=== PATIENT | male | born 1960 | race Caucasian/White ===

== ENCOUNTER 2022-06-08 15:36 | Outpatient (CLI) | payer OTHER, SELFPAY ==
[2022-06-08 22:05] LABS: Albumin* 4.6 g/dL (3.3-5.0)
[2022-06-08 22:06] LABS: Chloride* 105 mmol/L (96-114); Potassium* 4.1 mmol/L (3.6-5.1); Sodium* 142 mmol/L (135-149)
[2022-06-08 22:08] LABS: Alkaline Phosphatase* 69 U/L (40-150); Aspartate Amino Transferase* 30 U/L (12-35); Bilirubin Total* 0.5 mg/dL (0.1-1.5); Blood Urea Nitrogen* 11 mg/dL (7-30); Carbon Dioxide* 30 mmol/L (20-32); Cholesterol* 121 mg/dL (90-199); Estimated Glomerular Filt Rate 85 ml/min; Total Protein* 7.4 g/dL (6.0-8.3)
[2022-06-08 22:09] LABS: Alanine Aminotransferase* 26 U/L (4-50); Calcium* 9.4 mg/dL (8.4-10.6); Glucose* 94 mg/dL (60-115); HDL Cholesterol* 57 mg/dL (>=40); LDL Cholesterol Calculated 46 mg/dL (<100); Triglycerides* 90 mg/dL (40-149)
[2022-06-08 22:38] LABS: PSA Screen* 0.62 ng/mL (0.10-4.00)
[2022-06-08 22:53] LABS: Hepatitis C Virus Antibody* Negative (Negative)
== END 2022-06-08 15:37 | disposition home or self-care (01) ==
PROVIDERS: PCP Physician Assistant Medical; Visit Provider Family Medicine
DX: Z00.00 Encounter for general adult medical examination without abnormal findings (principal); E03.9 Hypothyroidism, unspecified; Z12.5 Encounter for screening for malignant neoplasm of prostate; Z13.6 Encounter for screening for cardiovascular disorders
CPT/HCPCS: 80053; 80061; 84153; 84443; 86803

== ENCOUNTER 2022-06-15 14:54 | Outpatient (CLI) | payer OTHER, SELFPAY ==
--- NOTE | 2022-06-15 15:00 | CRLHL7_ITS ---
For Patients: As a result of the Century Cures Act, medical imaging exams and procedure reports are released immediately into your electronic medical record. You may view this report before your referring provider. If you have questions, please contact your health care provider. Indication: palp lump x2 left lateral neck Technique: Grayscale and color Doppler ultrasound of the left neck performed. Comparison: None Findings: Multiple enlarged hypoechoic lymph nodes are present within the left side of the neck corresponding to the area palpable concern. The 2 largest lymph nodes measure 2.8 x 1.8 x 2.5 cm and 2.6 x 1.3 x 1.6 cm. No abnormal vascularity. Normal right-sided lymph nodes. Impression: Left cervical adenopathy. Dictated by Dante Mendez MD @ 06/15/2022 4:06:44 PM (Electronically Signed)
== END 2022-06-15 14:55 | disposition home or self-care (01) ==
LOC: US 14:54
PROVIDERS: PCP Physician Assistant Medical; Visit Provider Family Medicine
DX: R59.0 Localized enlarged lymph nodes (principal); R22.1 Localized swelling, mass and lump, neck
CPT/HCPCS: 76536

== ENCOUNTER 2022-06-29 14:52 | Outpatient (CLI) | payer OTHER, SELFPAY ==
--- NOTE | 2022-06-29 15:00 | CRLHL7_ITS ---
For Patients: As a result of the Century Cures Act, medical imaging exams and procedure reports are released immediately into your electronic medical record. You may view this report before your referring provider. If you have questions, please contact your health care provider. INDICATION: CERVICAL LYMPHADENOPATHY TECHNIQUE: CT of the neck with 99 ml Isovue 370 iodinated contrast agent. Coronal and sagittal reconstructions are included. COMPARISON: None FINDINGS: There is asymmetry of the palatine tonsils with masslike enhancement on the left side extending into the left parapharyngeal space measuring approximately 3.3 cm TR x 3.8 cm AP (series 3, image 40). There are multiple abnormal left level 2 lymph nodes that demonstrate heterogeneous or peripheral enhancement, for example a 2 x 1.9 x 1.8 cm left level IIa node and a 1.5 x 1.5 x 1.2 cm left level IIb node, 2.5 x 1.8 x 1.7 cm left level 3 node The nasopharyngeal, oropharyngeal and hypopharyngeal mucosal spaces are normal.. Lucency adjacent to the 2nd right maxillary molar tooth. The supraglottic, glottic and infraglottic larynx are normal. The airway including the trachea is normal and is patent. The parotid glands, submandibular and sublingual glands are normal in appearance. The thyroid gland is normal in appearance. The vascular structures opacify normally with contrast material. Scattered mild cervical spondylosis without significant spinal canal stenosis. No suspicious lytic or blastic osseous lesions. Visualized paranasal sinuses and mastoid air cells are clear. Rightward deviation of the nasal septum with septal spur. Visualized orbital and intracranial contents are normal. Supraclavicular regions, mediastinum and soft tissues of the imaged chest wall are normal. Visualized portions of the upper lungs are clear. IMPRESSION: 1. 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 2. Multiple enlarged and abnormally enhancing left level 2 and 3 lymph nodes most consistent with metastatic lymphadenopathy with necrotic changes. Please note that all CT scans at this facility use dose modulation, iterative reconstruction, and/or weight-based dosing when appropriate to reduce radiation dose to as low as reasonably achievable. Dictated by Dante Conner MD @ 07/01/2022 8:45:21 AM (Electronically Signed)
== END 2022-06-29 14:53 | disposition home or self-care (01) ==
LOC: CT 14:53
PROVIDERS: PCP Family Medicine; Visit Provider Family Medicine
DX: R59.0 Localized enlarged lymph nodes (principal); J03.90 Acute tonsillitis, unspecified; F17.200 Nicotine dependence, unspecified, uncomplicated; R22.1 Localized swelling, mass and lump, neck
CPT/HCPCS: 70491; Q9967

== ENCOUNTER 2022-12-06 08:14 | Outpatient (CLI) | payer OTHER, SELFPAY ==
[2022-12-06 22:25] LABS: TSH With Reflex to FT4* 0.049 uIU/mL (0.270-4.200)
[2022-12-06 23:02] LABS: Free T4 Free Thyroxine* 2.16 ng/dL (0.70-1.85)
== END 2022-12-06 08:15 | disposition home or self-care (01) ==
PROVIDERS: PCP Family Medicine; Visit Provider Family Medicine
DX: E03.9 Hypothyroidism, unspecified (principal); R53.83 Other fatigue; R63.4 Abnormal weight loss; E78.5 Hyperlipidemia, unspecified; N40.0 Benign prostatic hyperplasia without lower urinary tract symptoms
CPT/HCPCS: 80053; 84439; 84443; 86140

== ENCOUNTER 2023-06-22 01:06 | Emergency (ER) | payer OTHER, SELFPAY ==
[2023-06-22 01:24] VITALS: BP 124/104; PULSE 95; RESP 22; TEMP 37.1; O2SAT 100
--- NOTE | 2023-06-22 01:29 | CRLHL7_ITS ---
For Patients: As a result of the Century Cures Act, medical imaging exams and procedure reports are released immediately into your electronic medical record. You may view this report before your referring provider. If you have questions, please contact your health care provider. INDICATION: Lower abdomen pain TECHNIQUE: CT Abdomen and pelvis with i.v. contrast. Coronal and sagittal reformats were obtained. CONTRAST: 74 mL Isovue 370 COMPARISON: None FINDINGS: Lower chest: There is a thin-walled air cyst present in the subpleural posterior left lower lobe measuring 2.6 cm. Liver: Unremarkable. Spleen: Unremarkable. Pancreas: Unremarkable. Gallbladder: Unremarkable. Kidney: Bilateral renal cysts are present measuring up to 3 cm. Adrenal: Unremarkable. Bowel: Unremarkable. The appendix is best seen on coronal images 79-84. The appendix is normal in appearance and size. Vascular: Unremarkable. Lymph: Unremarkable. Peritoneum: Unremarkable. No pneumoperitoneum is seen. No significant ascites is noted. Pelvis: Severe enlargement of the prostate gland is noted. Mild diffuse bladder wall thickening is noted. There is a 1.8 cm right posterior bladder diverticulum noted. Soft tissue: Unremarkable. Bone: Unremarkable for age. IMPRESSIONS: 1. Severe enlargement of the prostate gland is noted. Correlation with physical examination, PSA level, and/or MRI are recommended. 2. Mild diffuse bladder wall thickening is noted. This may be due to urinary tract infection or cystitis. Dictated by Tom Juarez MD @ 06/22/2023 2:38:20 AM Please note that all CT scans at this facility use dose modulation, iterative reconstruction, and/or weight-based dosing when appropriate to reduce radiation dose to as low as reasonably achievable. Dictated by: Tom Juarez MD @ 06/22/2023 02:38:25 (Electronically Signed)
--- NOTE | 2023-06-22 01:31 | ED_ITS ---
HPI - Abdominal Pain General Chief Complaint: Abdominal Pain Stated Complaint: abdominal pain Time Seen by Provider: 06/22/23 01:26 History of Present Illness HPI narrative: Patient is a 63-year-old gentleman who has had abdominal pain off and on all week who presents with worsening periumbilical pain which radiates through to his back. Had some nausea and vomiting of nonbloody material. He has had normal bowel movements this week. 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 He is having no difficulties passing his urine and no dysuria. He has had no prior similar symptoms previously. Pain is severe. Related Data Home Medications Medication Instructions Recorded Confirmed aspirin 81 mg tablet,delayed 81 mg PO DAILY 04/02/22 12/06/22 release naproxen sodium 220 mg tablet 440 mg PO BID PRN 08/20/22 12/06/22 oxycodone 5 mg capsule 5 mg PO Q6H PRN 09/24/22 12/06/22 Previous Rx's Medication Instructions Recorded atorvastatin 40 mg tablet See Rx Instructions .Route 08/03/22 .COMPLEX #30 tabs omeprazole 20 mg capsule,delayed 20 mg PO DAILY #30 caps 08/07/22 release levothyroxine 175 mcg tablet 175 mcg .Route QDAY #90 tabs 08/16/22 lorazepam 0.5 mg tablet 0.5 mg PO TID PRN nausea and 08/20/22 vomiting #30 tabs ondansetron 8 mg disintegrating 8 mg PO Q8H PRN nausea and 08/20/22 tablet vomiting #20 tabs tamsulosin 0.4 mg capsule See Rx Instructions .Route 10/10/22 .COMPLEX #180 caps tadalafil 10 mg tablet 10 mg PO .as Direc as needed PRN 11/30/22 sexual activity #5 tabs mirtazapine 7.5 mg tablet 7.5 mg PO QPM #90 tabs 02/07/23 Allergies Allergy/AdvReac Type Severity Reaction Status Date / Time No Known Allergies Allergy Verified 12/06/22 14:14 Review of Systems Status of ROS Reports: 10 or more systems reviewed and unremarkable except as noted in History and below [facility] Medical History EDWIN (acute kidney injury) ?N17.9 - Acute kidney failure, unspecified (ICD-10) Chronic idiopathic thrombocytopenia ?D69.3 - Immune thrombocytopenic purpura (ICD-10) Erectile dysfunction ?N52.9 - Male erectile dysfunction, unspecified (ICD-10) BPH (benign prostatic hyperplasia) ?N40.0 - Benign prostatic hyperplasia without lower urinary tract symptoms (ICD-10) Hypothyroidism (12/21/11) ?E03.9 - Hypothyroidism, unspecified (ICD-10) Hyperlipidemia (06/15/14) ?E78.5 - Hyperlipidemia, unspecified (ICD-10) Gastroesophageal reflux disease ?K21.9 - Gastro-esophageal reflux disease without esophagitis (ICD-10) Benign paroxysmal positional vertigo (11/20/11) ?H81.10 - Benign paroxysmal vertigo, unspecified ear (ICD-10) Surgical History History of hernia repair ?Z98.890 - Other specified postprocedural states (ICD-10) ?Z87.19 - Personal history of other diseases of the digestive system (ICD-10) Family History Mother Breast cancer, Onset Age: 65 Social History Narrative: History of alcohol abuse, has not had a drink in 25 years marijuana use Smoker, 1ppd for 18 years Smoking Status: Current every day smoker Little interest or pleasure in doing things: not at all Feeling down, depressed, or hopeless: not at all Exam Narrative: Exam Narrative: EXAM GENERAL: Patient appears uncomfortable. EYES: No scleral icterus. LYMPH: No supraclavicular or cervical lymphadenopathy. SKIN: Visible skin seen during exam normal or with benign process only. EXT: No dependent lower extremity pedal edema. HEART: Regular rate and rhythm with no murmurs, rubs, or gallops. LUNGS: Clear to auscultation bilaterally with no crackles or wheezes. ABD: Scaphoid and tender throughout with hypoactive bowel sounds. No rebound or masses palpated PSYCH: Good eye contact, speech is not pressured. Neurologic cranial nerves 2-12 grossly intact no focal defects. Const: Vital Signs, click to edit/add: Vital Signs - 24 hr 06/22/23 01:24 Temperature 98.8 F Pulse Rate [Left] 95 Respiratory Rate 22 Blood Pressure [Le ft Upper Arm] 124/104 H Pulse Oximetry 100 Oxygen Delivery Me thod Room Air Course Course ED Course: Patient seen examined. IV placed normal saline 1 L Toradol 30 mg 4 mg of Zofran given IV. CBC comprehensive metabolic panel amylase urinalysis CT abdomen and pelvis ordered. Vital Signs Vital signs: Initial Vital Signs Temperature 98.8 F 06/22/23 01:24 Temperature Source Temporal Artery Scan 06/22/23 01:24 Pulse Rate 95 06/22/23 01:24 Pulse Rhythm Regular 06/22/23 01:24 Respiratory Rate 22 06/22/23 01:24 Blood Pressure 124/104 H 06/22/23 01:24 Blood Pressure Mean 110 H 06/22/23 01:24 Blood Pressure Position Supine 06/22/23 01:24 Pulse Oximetry 100 06/22/23 01:24 Oxygen Delivery Method Room Air 06/22/23 01:24 Vital Signs Temperature 98.8 F 06/22/23 01:24 Pulse Rate 95 06/22/23 01:24 Respiratory Rate 22 06/22/23 01:24 Blood Pressure 124/104 H 06/22/23 01:24 Pulse Oximetry 100 06/22/23 01:24 Oxygen Delivery Method Room Air 06/22/23 01:24 Temperature 98.8 F 06/22/23 01:24 Pulse Rate 95 06/22/23 01:24 Respiratory Rate 22 06/22/23 01:24 Blood Pressure 124/104 H 06/22/23 01:24 Pulse Oximetry 100 06/22/23 01:24 Oxygen Delivery Method Room Air 06/22/23 01:24 MDM - Abdominal Pain MDM Narrative Medical decision making narrative: Patient presents with severe abdominal pain. Patient's pain resolved with 1 L of normal saline 30 mg of IV Toradol and 4 mg of Zofran. Workup including UA CBC CMP amylase is CT abdomen pelvis are unremarkable with exception of an large bladder which resolved with the patient urinated. And there is a question of cystitis however the UA was normal. Patient is now feeling 100% better is ready for discharge and is willing to follow-up as an outpatient. Differential Diagnosis Differential diagnosis: Likely abdominal pain, acute appendicitis, calculus of kidney, constipation, diverticulitis, gastroenteritis, pancreatitis and small bowel obstruction Lab Data Labs: Lab Results 06/22/23 06/22/23 Range/Units 01:43 02:44 WBC 5.41 (4.50-11.00) K/uL RBC 3.96 L (4.30-5.90) m/uL Hgb 13.0 L (13.5-17.5) gm/dL Hct 39.6 (37.0-53.0) % MCV 100 (80-100) fL MCH 33 (26-34) pg MCHC 33 (32-36) gm/dL RDW Coeff of Evelia 13.0 (11.5-15.5) % Plt Count 122 L (140-440) K/uL Neut % (Auto) 72.8 H (42.0-72.0) % Lymph % (Auto) 14.4 L (20-44) % Barnes % (Auto) 8.7 (0.0-11.0) % Eos % (Auto) 3.3 (0.0-7.0) % Baso % (Auto) 0.6 (0.0-3.0) % Neut # (Auto) 3.90 (1.7-7.0) K/uL Lymph # (Auto) 0.80 L (0.90-2.90) K/uL Barnes # (Auto) 0.50 (0.00-0.90) K/UL Eos # (Auto) 0.18 (0.00-0.50) K/uL Baso # (Auto) 0.03 (0.00-0.30) K/uL Abs Immat Gran (auto) 0.01 (0.00-0.30) K/uL Imm/Tot Granulo (auto) 0.2 % Sodium 142 (135-149) mmol/L Potassium 4.0 (3.6-5.1) mmol/L Chloride 104 (96-114) mmol/L Carbon Dioxide 29 (20-32) mmol/L Anion Gap 9 (7-15) mEq/L BUN 14 (7-30) mg/dL Creatinine 1.1 (0.5-1.5) mg/dL Estimated GFR 75 ml/min Glucose 98 (60-115) mg/dL Calcium 9.0 (8.4-10.6) mg/dL Total Bilirubin 0.4 (0.1-1.5) mg/dL AST 56 H (12-35) U/L ALT 27 (4-50) U/L Alkaline Phosphatase 56 (40-150) U/L Total Protein 7.3 (6.0-8.3) g/dL Albumin 4.2 (3.3-5.0) g/dL Amylase 53 (18-89) U/L Urine Color Yellow (Yellow) Urine Appearance Clear (Clear) Urine pH 5.5 (5.0-8.5) Ur Specific Mora 1.015 (1.000-1.030) Urine Protein Negative (Negative) Urine Glucose (UA) Negative (Negative) Urine Ketones Negative (Negative) Urine Blood Negative (Negative) Urine Nitrite Negative (Negative) Urine Bilirubin Negative (Negative) Urine Urobilinogen 0.2 (0.2-1.0) Ur Leukocyte Esterase Negative (Negative) Discharge Plan Discharge Clinical Impression: Abdominal pain Patient Disposition: Home, Self-Care Condition: Stable Instructions: Abdominal Pain (ED) Additional Instructions: Tylenol Motrin Rest Fluids Activity Level: No Restrictions Discharge Diet: Regular Prescriptions: No Action naproxen sodium 220 mg tablet 440 mg PO BID PRN ondansetron 8 mg tablet,disintegrating 8 mg PO Q8H PRN (Reason: nausea and vomiting) Qty: 20 4RF lorazepam 0.5 mg tablet 0.5 mg PO TID PRN (Reason: nausea and vomiting) Qty: 30 3RF aspirin 81 mg tablet,delayed release (DR/EC) 81 mg PO DAILY oxycodone 5 mg capsule 5 mg PO Q6H PRN atorvastatin 40 mg tablet See Rx Instructions .ROUTE .COMPLEX Qty: 30 12RF Dose Instruction: TAKE 1 TABLET BY MOUTH AT BEDTIME Rx Instructions: TAKE 1 TABLET BY MOUTH AT BEDTIME omeprazole 20 mg capsule,delayed release(DR/EC) 20 mg PO DAILY Qty: 30 8RF levothyroxine 175 mcg tablet 175 mcg .ROUTE QDAY Qty: 90 3RF Rx Instructions: 175 mcg every day; tamsulosin 0.4 mg capsule See Rx Instructions .ROUTE .COMPLEX Qty: 180 2RF Dose Instruction: TAKE 2 CAPSULES BY MOUTH DAILY Rx Instructions: TAKE 2 CAPSULES BY MOUTH DAILY tadalafil 10 mg tablet 10 mg PO .as Direc as needed PRN (Reason: sexual activity) Qty: 5 0RF mirtazapine 7.5 mg tablet 7.5 mg PO QPM Qty: 90 3RF Follow Up/Referrals: Chinyere Bertrand MD [Primary Care Provider] - Stand Alone Forms: [employer] Info Instructions
--- OUTSIDE RECORDS SUMMARY | 2023-06-22 01:50 | XMS_ITS | Continuity of Care Document ---
Author Name Unknown Organization [facility] Address [address] [address] [place] [address] Phone Care Team Providers Care Dye Beck Reel Operator Name Role Phone Oren Yarbrouhg MD Unavailable Unavailable Advance Directives Directive Yes / No Effective Date File Name No Information Encounters Encounter Description Practice Location Reason(s) For Visit Diagnoses Date Provider Providers Copied on Encounter [facility], [address] [address], [place], [place], [id number], [place] tel:[phone] [facility] No Information 0 Zenon Lott. [address] [facility], [facility] [address], [place], [place], [id number] , [place]. [phone] Family History Family Member Type Diagnosis Age At Onset No Information Payers Payer name Insurance type Covered green party ID Authoriza tion(s) No Information Social History Type Description Quantity Date Captured Comments Sex Male Smoking Status No Information Chief Complaint And Reason For Visit No Information Reason For Referral Reason For Referral No Information History Of Present Illness Encounter Date Complaint History Of Prese nt Illness No Information Functional Status Date Functional Assessmen t No Information Instructions Date Instruction Additional Infor mation No Information Assessments Type Assessment Date No Information Patient Care Teams Name Effective Dates (start - stop) Status Members No Information
[2023-06-22 01:51] LABS: Basophils Absolute Auto 0.03 K/uL (0.00-0.30); Basophils Percent Auto 0.6 % (0.0-3.0); Eosinophils Absolute Auto 0.18 K/uL (0.00-0.50); Eosinophils Percent Auto 3.3 % (0.0-7.0); Hematocrit 39.6 % (37.0-53.0); Immature Granulocytes Abs Auto 0.01 K/uL (0.00-0.30); Immature Granulocytes Pct Auto 0.2 %; Lymphocytes Percent Auto 14.4 % (20-44); Mean Corpuscular HGB Conc 33 gm/dL (32-36); Mean Corpuscular Hemoglobin 33 pg (26-34); Mean Corpuscular Volume 100 fL (80-100); Monocytes Percent Auto 8.7 % (0.0-11.0); Neutrophils Percent Auto 72.8 % (42.0-72.0); Platelet Count* 122 K/uL (140-440); Red Blood Count 3.96 m/uL (4.30-5.90); White Blood Count* 5.41 K/uL (4.50-11.00)
[2023-06-22 01:52] LABS: Slide Review Reflex No
--- OUTSIDE RECORDS SUMMARY | 2023-06-22 01:52 | XMS_ITS | Continuity of Care Document ---
Author Name Unknown Organization [facility] Address [address] [address] [place] [address] Phone Care Team Providers Care Gis Developer Name Role Phone Oren Yarbrough MD Unavailable Unavailable Advance Directives Directive Yes / No Effective Date File Name No Information Encounters Encounter Description Practice Location Reason(s) For Visit Diagnoses Date Provider Providers Copied on Encounter [facility] [address] [address], [place], [place], [id number], [place] tel:[phone] [facility] No Information 0 Zenon Lott. [address] [facility], [facility] [address], [place], [place], [id number] , [place]. [phone] Family History Family Member Type Diagnosis Age At Onset No Information Payers Payer name Insurance type Covered alliance party ID Authoriza tion(s) No Information Social [...]
[2023-06-22] MEDS: 0.9 % SODIUM CHLORIDE 1000 ml 1,000 ML IV (01:58)
[2023-06-22] MEDS: KETOROLAC 30 MG/ML inj IVP (01:59)
[2023-06-22] MEDS: ONDANSETRON 2 MG/ML inj 4 MG IVP (02:00)
[2023-06-22 02:03] LABS: Albumin* 4.2 g/dL (3.3-5.0); Chloride* 104 mmol/L (96-114)
[2023-06-22 02:04] LABS: Sodium* 142 mmol/L (135-149)
[2023-06-22 02:06] LABS: Alkaline Phosphatase* 56 U/L (40-150); Amylase* 53 U/L (18-89); Anion Gap 9 mEq/L (7-15); Aspartate Amino Transferase* 56 U/L (12-35); Bilirubin Total* 0.4 mg/dL (0.1-1.5); Blood Urea Nitrogen* 14 mg/dL (7-30); Carbon Dioxide* 29 mmol/L (20-32); Creatinine* 1.1 mg/dL (0.5-1.5); Estimated Glomerular Filt Rate 75 ml/min; Glucose* 98 mg/dL (60-115); Total Protein* 7.3 g/dL (6.0-8.3)
[2023-06-22 02:07] LABS: Alanine Aminotransferase* 27 U/L (4-50)
[2023-06-22 02:51] LABS: Appearance Urine Clear (Clear); Bilirubin Urine Negative (Negative); Blood Urine Negative (Negative); Color Urine Yellow (Yellow); Glucose Urine Negative (Negative); Ketones Urine Negative (Negative); Leukocyte Esterase Urine Negative (Negative); Nitrite Urine Negative (Negative); Protein Urine Negative (Negative); Specific Gravity Urine 1.015 (1.000-1.030); Urobilinogen Urine 0.2 (0.2-1.0); pH Urine 5.5 (5.0-8.5)
== END 2023-06-22 03:07 | disposition home or self-care (01) ==
PROVIDERS: Emergency Provider Internal Medicine; PCP Family Medicine
DX: R10.33 Periumbilical pain (principal)
CPT/HCPCS: 36415; 74177; 80053; 81003; 82150; 85025; 96374; 96375; 99283; 99284; 99285; J1885; J2405; J7030; Q9967

== ENCOUNTER 2023-10-11 12:38 | Outpatient (CLI) | payer OTHER, SELFPAY ==
--- OUTSIDE RECORDS SUMMARY | 2023-10-11 12:41 | XMS_ITS | Referral Summary ---
Author Name Unknown Organization [facility] Address [address] [place] [address] Care Team Providers Care Screen Printer Name Role Phone Elsewhere, Pcp Primary Care Provider Unavailabl e Source Comments Patient records contain information from all sites at [facility]. For routine questions regarding patient records, call [phone] during business hours, M-F 8:00 AM - 5:00 PM Central Time. Record requests for emergency care only can be directed to [phone] at any time.[facility] Allergies No known active allergies Medications Medication Sig Dispensed Refills Start Date End Date Status levothyroxine (SYNTHROID, LEVOTHROID) 175 mcg tablet Take 175 mcg by mouth daily. 0 06/12/2022 Active omeprazole (PriLOSEC) [address] capsule Take 20 mg by mouth daily. 0 06/27/2022 Active tadalafiL (CIALIS) 10 mg tablet TAKE 1 TABLET BY MOUTH DIRTECTED NEEDED FOR SEXUAL ACTIVITY. 0 05/29/2022 Active tamsulosin (FLOMAX) 0.4 mg 24 hr capsule Take 0.8 mg by mouth daily. 0 06/08/2022 Active mirtazapine (REMERON) 7.5 mg tablet Take 7.5 mg by mouth at bedtime. 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 No 07/30/2022 Within the last year, have y ou been humiliated or emotionally abused in other ways by your partner or ex-partner? No Within the last year, have y ou been kicked, hit, slapped, or otherwise physically hurt by your partner or ex-partner? No 07/30/2022 Within the last year, have y ou been raped or forced to have any kind of sexual activity by your partner or ex-partner? No 07/30/2022 Social Connection and Isolat ion Panel [NHANES] Answer Date Recorded In a typical week, how many times do you talk on the phone with family, friends, or neighbors? Once a week 07/30/2022 How often do you get togethe r with friends or relatives? More than three times a week 07/30/2022 How often do you attend chur ch or pentecostalism services? More than 4 times per year 07/30/2022 Do you belong to any clubs o r organizations such as alevism groups, unions, fraternal or athletic groups, or school groups? Yes 07/30/2022 How often do you attend meet ings of the clubs or organizations you belong to? More than 4 times per year 07/30/2022 Are you , , di vorced, , never , or living with a partner? 07/30/2022 AUDIT-C Answer Date Recorded Q1: How often do you have a drink containing alc ohol? Never 07/30/2022 Average Number of Drinks Not on file 022 Frequency of Binge Drinking Not on file 07/17 Overall Financial Resource Strain (CARDIA) Answe r Date Recorded How hard is it for you to pa y for the very basics like food, housing, medical care, and heating? Not very hard 07/30/2022 PHQ-2 Answer Date Recorded PHQ-2 Score 0 09/03/2022 [facility] - Occupational Stress Questionnaire Answer Date Recorded Do you feel stress - tense, restless, nervous, or anxious, or unable to sleep at night because your mind is troubled all the time - these days? Rather much 07/30/2022 Exercise Vital Sign Answer Date Recorde d On average, how many days pe r week do you engage in moderate to strenuous exercise (like a brisk walk)? 5 days 07/30/2022 On average, how many minutes do you engage in exercise at this level? 20 min 07/30/2022 Hunger Vital Sign Answer Date Recorded Within the past 12 months, y ou worried that your food would run out before you got the money to buy more. Never true 07/30/20 Within the past 12 months, t he food you bought just didn't last and you didn't have money to get more. Never true 07/30/2022 PRAPARE - Transportation Answer Date Re corded In the past 12 months, has l ack of transportation kept you from medical appointments or from getting medications? No 07/17 In the past 12 months, has l ack of transportation kept you from meetings, work, or from getting things needed for daily living? No 07/30/2022 Housing Stability Vital Sign Answer Marty e Recorded In the last 12 months, was t here a time when you were not able to pay the mortgage or rent on time? No 07/30/2022 In the last 12 months, how many places have you lived? 1 07/30/2022 In the last 12 months, was t here a time when you did not have a steady place to sleep or slept in a [place] [facility] [place] (including now)? No 07/30/2022 Nutrition Answer Date Recorded Nutrition: EVOO Fat Source No 07/30 On average, how many serving s of fruits and vegetables do you eat per day (serving size is equal to 1 cup or approximately the size of a tennis ball)? 2-3 07/30/2022 Dental Answer Date Recorded Dental: Regular Dentist Yes 07/30/20 Employment Answer Date Recorded Employment status Employed and actively working without restrictions 07/30/2022 Education Answer Date Recorded What is the highest level of school you have completed or the highest degree you have received? Some college, no degree 07/30/2022 Sex and Gender Information Value Date Recorded Sex Assigned at Male 07/30/2022 11:39 AM PARA OPERATOR Gender Identity Male 07/30/2022 11:39 AM PARA OPERATOR Sexual Orientation Straight 07/30/2022 11 :39 AM PARA OPERATOR Last Filed Vital Signs Vital Sign Reading Time Taken Comments Blood Pressure 108/71 12/28/2022 9:20 AM CDT Pulse 71 12/28/2022 9:20 AM CDT Temperature 36.7 ??C (98.1 ??F) 11/12/2022 3:00 PM CS T Respiratory Rate - - Oxygen Saturation - - Inhaled Oxygen Concentration - - Weight 74.1 kg (163 lb 5.8 oz) 12/28/2022 9:20 A M CDT Height 170.6 cm (5' 7.17) 12/28/2022 9:20 AM CD T Body Mass Index 25.46 12/28/2022 9:20 AM CDT Plan of Treatment Not on file Care Teams Screen Printer Relationship Specialty Start Date End Date Elsewhere, Pcp PCP - General Internal Medicine 12/26/22
--- OUTSIDE RECORDS SUMMARY | 2023-10-11 12:41 | XMS_ITS ---
Author Name Unknown Organization [facility] Address [address] [place] [address] Care Team Providers Care Bleacher Pulp Name Role Phone Unavailable Unavailable Unavailable Surgery Details Not on file Complications Check Surgery Details section. Procedure Estimated Blood Loss Check Surgery Details section. Procedure Findings Check Surgery Details section. Procedure Specimens Taken Check Surgery Details section.
--- OUTSIDE RECORDS SUMMARY | 2023-10-11 12:41 | XMS_ITS | Clinical Summary ---
Author Name Unknown Organization [facility] Address [address] [place] [address] Care Team Providers Care Dba Developer Name Role Phone Elsewhere, Pcp Primary Care Provider Unavailabl e Source Comments Patient records contain information from all sites at [facility]. For routine questions regarding patient records, call [phone] during business hours, M-F 8:00 AM - 5:00 PM Central Time. Record requests for emergency care only can be directed to [phone] at any time.[facility] Allergies No known active allergies Medications Medication [...] 07/09/2022 Secondary Malignant Neoplasm Lymph Node Neck Family History Medical History Relation Name Comments Alcohol abuse Father Hosea Dementia Father Hosea no more driving as of this summer Migraines Father Hosea On migraine RX Breast cancer Mother Ana 20 years ago Thyroid disease Mother Ana KELLY Son Glen 3 kids on ADD R X Seizures Son Glen Epilepsy age 13 Relation Name Status Comments Father Hosea Mother Ana Son Glen Social History Tobacco Use Types Packs/Day Years [...] 07/30/2022 How often do you attend chur or buddhism services? More than 4 times per year 07/30/2022 Do you belong to any clubs o r organizations such as restoration groups, unions, fraternal or athletic groups, or [...] Answer Date Recorded PHQ-2 Score 0 09/03/2022 [facility] - Occupational Stress [...] money to buy more. Never true 07/30/20 22 Within the past 12 months, t he [...] place to sleep or slept in a skilled nursing (including now)? No 07/30/2022 Nutrition Answer Date [...] Sex Assigned at Male 07/30/2022 11:39 AM SHIFT COORDINATOR Gender Identity Male 07/30/2022 11:39 AM SHIFT COORDINATOR Sexual Orientation Straight 07/30/2022 11 :39 AM SHIFT COORDINATOR Last Filed Vital Signs Vital Sign Reading [...] 12/28/2022 9:20 AM CDT Plan of Treatment Health Maintenance Due Date Last Done Comments CT Colonography 1960 Cologuard 1960 Colonoscopy 1960 Colorectal Cancer Screening 1960 FIT 1960 Fasting Glucose for Diabetes Screening 1960 HIV Screening 1960 Hepatitis C Screening 1960 Lipid (Cholesterol) Screening 1960 Lung Cancer Screening 1960 Thyroid Stimulating Hormone (TSH) test for thyroid function 1960 Pneumococcal vaccine (0-64 years) (1 of 2 - PCV) 1966 Zoster Vaccines (1 of 2) 1979 COVID-19 Vaccine (4 - 2022-2 4 season) 2023 11/19/2021, 02/04/2021, 01/13/2021 Influenza Vaccine (#1) 2023 07/08/2019 Depression Screening (Annual PHQ-2) 09/16/2023 DTaP,Tdap,and Td Vaccines (3 - Td or Tdap) 01/30/2029 01/30/2019, 05/24/2008 HPV Vaccines Aged Out No longer eligi ble based on patient's age to complete this topic Care Teams Dba Developer Relationship Specialty Start Date End Date Elsewhere, Pcp PCP - General Internal Medicine 12/26/22
--- OUTSIDE RECORDS SUMMARY | 2023-10-11 12:42 | XMS_ITS | Encounter Summary ---
Author Name Unknown Organization [facility] Address [address] [place] [address] Care Team Providers Care Factory Worker Name Role Phone Unavailable Primary Care Provider Unavailabl e Encounter Details Date Type Department Care Team (Late st Contact Info) Description 11/02/2022 Clinical Communication Department of Radiation Oncology in [place], [place] [address] [place] [id number] Sapna Mckeon, RYassineNYassine [address] [place] [address] Social History Tobacco Use Types Packs/Day Years Used Date Smoking Tobacco: Every Day Cigarettes 0.3 Humiliation, Afraid, Rape, and Kick questionnair e [...] often do you attend chur ch or gnosticism services? More than 4 times per year 07/30/2022 Do you belong to any clubs o r organizations such as buddhist groups, unions, fraternal or athletic groups, or [...] Answer Date Recorded PHQ-2 Score 0 09/03/2022 [facility] - Occupational [...] place to sleep or slept in a penitentiary (including now)? No 07/30/2022 Nutrition Answer Date [...] Sex Assigned at Male 07/30/2022 11:39 AM PANTOGRAPH SETTER Gender Identity Male 07/30/2022 11:39 AM PANTOGRAPH SETTER Sexual Orientation Straight 07/30/2022 11 :39 AM PANTOGRAPH SETTER documented as of this encounter Miscellaneous Notes * Telephone Encounter - Sapna Mckeon R.N. - 11/02/2022 2:30 PM CST ASSESSMENT Patient calls in to report that he feels he has oral thrush. His daughter is an MID LEVEL CLINICIAN and notes that she sees thrush appearance to the right side of cavity; describing what looks like white to yellowish tonsil stones to the area of the right oral cavity. Patient denies oral cavity pain. He feels thathe is eating and drinking more. He is not eating chicken and sloppy-joes. He is receiving IV fluidsthis past week. He notes that his weight weight up 2 lbs this week and is now 176 lbs. He denies any other new concerns/symptoms. His sore throat pain has improved since completing treatment. PLAN I will discuss with Dr. Vallejo today regarding need for anti-fungal prescription to [facility] in [place], [place]. Disposition/Recommendation: self-care - appropriate at this time, patient encouraged to call back with questions. Information/Education: patient/caller able to teach back. Caller agreeable to plan of care: yes. The following references were used: nursing clinical judgement. Addendum: Diflucan prescribed as this was previously well tolerated with patient back in Mid September 2022 OGRAPH SETTER documented in this encounter Plan of Treatment Not on file documented as of this encounter Visit Diagnoses Not on filedocumented in this encounter
--- OUTSIDE RECORDS SUMMARY | 2023-10-11 12:42 | XMS_ITS | Encounter Summary ---
Author Name Unknown Organization [facility] Address [address] [place] [address] Care Team Providers Care Senior Software Developer Name Role Phone Elsewhere, Pcp Primary Care Provider Unavailabl e Reason for Visit * Reason Comments Establish Care * Appointment Request (Routine) - Closed Specialty Diagnoses / Procedures Referred By Contac t Referred To Contact Endocrinology Diagnoses Dysfunction Thyroid Referral ID Status Reason Start Date Expiration Date Visits Re quested Visits Authorized [id number] Closed 12/14/2022 12/14/2023 1 1 Encounter Details Date Type Department Care Team (Latest Contact Info) Description 12/28/2022 9:00 AM CDT Comprehensive Visit Division of Endocrinology in [place], [place] [address] [place] [address] Hosea Mosher III, M.D. Hypothyroidism On Replacement (Primary Dx) Social History Tobacco Use Types Packs/Day Years [...] How often do you attend chur or sikhism services? More than 4 times per year 07/30/2022 Do you belong to any clubs o r organizations such as yarsanism groups, unions, fraternal or athletic groups, or [...] Answer Date Recorded PHQ-2 Score 0 09/03/2022 [facility] Answer Date Recorded [...] Sex Assigned at Male 07/30/2022 11:39 AM AREA DIRECTOR Gender Identity Male 07/30/2022 11:39 AM AREA DIRECTOR Sexual Orientation Straight 07/30/2022 11 :39 AM AREA DIRECTOR documented as of this encounter Last Filed Vital Signs Vital Sign Reading Time Taken Comments Blood Pressure 108/71 12/28/2022 9:20 AM CDT Pulse 71 12/28/2022 9:20 AM CDT Temperature - - Respiratory Rate - - Oxygen Saturation - - Inhaled Oxygen Concentration - - Weight 74.1 kg (163 lb 5.8 oz) 12/28/2022 9:20 A M CDT Height 170.6 cm (5' 7.17) 12/28/2022 9:20 AM CD T Body Mass Index 25.46 12/28/2022 9:20 AM CDT documented in this encounter H&P Notes * Benito Montaño M.D. - 12/28/2022 9:00 AM CDT SUPERVISED BY: Dr. Hosea Mosher III SUBJECTIVE CHIEF COMPLAINT / REASON FOR VISIT Nehemias Pratt is a 62 y.o. male who presents for evaluation of hypothyroidism on replacement in setting of recent neck radiation therapy. HISTORY OF PRESENT ILLNESS #1 Hypothyroidism On Replacement Nehemias Pratt is a 62 y.o. man with left tonsillar squamous cell carcinoma diagnosed in 2021 for evaluation of abnormal thyroid labs. At time of diagnosis he had local lymph node involvement with multiple cervical lymph nodes. He underwent radiation treatment to the left tonsil and left neck and lymph nodes starting in August 2022 and finishing on October 16, 2022 with weekly cisplatin chemotherapy. 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 He denies any symptoms of tremor, palpitations, diarrhea. He denies shortness of breath. He is eating and though has lost 50 lbs the course of his cancer diagnosis, he is now gaining weight in is up to 162 lb from a low of 150 lb. Prior to radiation treatment of the neck for his metastatic tonsillar cancer, he was already taking 175mcg of levothyroxine. He says he has been taking thyroid replacement for the past 10 years. He is a current 0.5ppd smoker and is trying to cut back. The following portions of the patient???s history were reviewed and updated as appropriate: allergies, current medications, family history, medical history, social history, surgical history and problem list. OBJECTIVE PHYSICAL EXAM BP 108/71 (BP Location: Left arm, Patient Position: Sitting, Cuff Size: Regular) Pulse 71 Ht 170.6 cm Wt 74.1 kg BMI 25.46 kg/m?? General: Patient appears comfortable, breathing easily and talking in complete sentences. No acute distress. Head: Atraumatic and normocephalic. Eyes: Pupils are equally round and reactive to light, external ocular movements intact. Throat: Mucous membranes moist, no exudate. Neck: Thyroid without evidence of nodules or asymmetry, not enlarged or tender. Cardiovascular: Regular rate and rhythm, no murmurs, rubs, or gallops. Distal pulses intact and equal. No peripheral edema. Lungs: Bilaterally clear and equal in all lizama. No adventitious sounds. Abdomen: Soft, nontender, bowel sounds present, no masses or organomegaly. Neuro: Moving all extremities spontaneously. No focal neurologic deficits. Strength 5/5 in all extremities, sensation intact. CN II-XII intact. No dysdiadochokinesia or dysmetria. Skin: No rashes, skin changes, eruptions, or bruises. Normal texture and turgor for age. Outside TSH: 0.049 Outside T4: 2.16 ASSESSMENT / PLAN #1 Hypothyroidism On Replacement - T4 (Thyroxine), Free; Future; Expected date: 02/08/2023 - S-TSH (Thyroid-Stimulating Hormone - Sensitive); Future; Expected date: 02/08/2023 - T3 (Triiodothyronine), Total; Future; Expected date: 02/08/2023 Nehemias Pratt is a 62 y.o. man with metastatic left tonsillar squamous cell carcinoma with recentthe left tonsil and left side of his back and history of hypothyroidism on complete thyroid replacement therapy who presents for evaluation after an abnormal TSH and free T4. He has a low TSH of 0.049 and elevated Free T4 of 2.16 indicating a current hyperthyroid state. These labs were collected on12/06/2022. He is otherwise not having any symptoms concerning for clinical hyperthyroidism. After just completing radiation treatment 3 months ago, it is likely that he is experiencing a transient increase in endogenous thyroid hormone secondary to radiation thyroiditis and inflammation of the thyroid. We will reduce his levothyroxine to one half tablet daily (87.5mcg) and re-check his TSH and free T3 and T4 in 6 weeks. I spent a total of 30 minutes reviewing the patient's medical records and diagnostic tests, seeing the patient, speaking with the nursing team, placing the orders noted above, coordinating care, and/or documenting in the record documented in this encounter Consult Notes * Hosea Mosher III, M.D. - 12/28/2022 9:00 AM CDT SUBJECTIVE SUPERVISORY NOTE I am supervising the consult note of Dr. Montaño of December 28. I reviewed the history, physical exam, impression and plan as described by Dr. Montaño in his note of December 28, and I agree with his note. HISTORY OF PRESENT ILLNESS Mr. Pratt has longstanding primary hypothyroidism. He recently completed radiation therapy for squamous cell carcinoma of the head and neck supervised by Dr. Vallejo in [place]. He currently is mildly hyperthyroid with a suppressed TSH and a mildly elevated free T4 while taking his 175 mcg of levothyroxine daily. This dose was apparently quite good for him previously. Of note, he has lost about 30 pounds during the course of his treatments. He denies any direct thyroid related symptoms or symptoms of thyrotoxicosis. 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 Pratt is experiencing some radiation thyroiditis that is causing some release of thyroid hormone from his gland that is adding to his 175 mcg replacement therapy. Also his 30-pound weight loss is likely playing a role here. For now, we asked him to reduce his levothyroxine dose to half a tablet of the 175 mcg daily. I gave him a request to have repeat TSH and free T4 near his home in about 6 weeks, and I will touch basewith him when we have those results. He likely will need some further dose adjustment as the thyroiditis slowly improves. He will let us know if he has questions or concerns in the interim. Hosea Mosher III, M.D. CT CT Job ID: [id number] documented in this encounter Plan of Treatment Not on file documented as of this encounter Visit Diagnoses Diagnosis Hypothyroidism On Replacement- Primary documented in this encounter Care Teams Senior Software Developer Relationship Specialty Start Date End Date Elsewhere, Pcp PCP - General Internal Medicine 12/26/22 documented as of this encounter
--- OUTSIDE RECORDS SUMMARY | 2023-10-11 12:42 | XMS_ITS | Encounter Summary ---
Author Name Unknown Organization [facility] Address [address] [place] [address] Care Team Providers Care Machine Ii Engraver Name Role Phone Elsewhere, Pcp Primary Care Provider Unavailabl e Encounter Details Date Type Department Care Team (Late st Contact Info) Description 12/27/2022 Orders Only Division of Endocrinology in [place], [place] [address] [place] [address] Hosea Mosher III, M.D. Social History Tobacco Use Types Packs/Day Years [...] often do you attend chur ch or rastafarian services? More than 4 times per year 07/30/2022 Do you belong to any clubs o r organizations such as nondenominational groups, unions, fraternal or athletic groups, or [...] Answer Date Recorded PHQ-2 Score 0 09/03/2022 [facility] - Occupational Stress [...] place to sleep or slept in a fpc (including now)? No 07/30/2022 Nutrition Answer Date [...] Sex Assigned at Male 07/30/2022 11:39 AM TOOLS ADMINISTRATOR Gender Identity Male 07/30/2022 11:39 AM TOOLS ADMINISTRATOR Sexual Orientation Straight 07/30/2022 11 :39 AM TOOLS ADMINISTRATOR documented as of this encounter Plan of Treatment Not on file documented as of this encounter Visit Diagnoses Not on filedocumented in this encounter Care Teams Machine Ii Engraver Relationship Specialty Start Date End Date Elsewhere, Pcp PCP - General Internal Medicine 12/26/22 documented as of this encounter
--- OUTSIDE RECORDS SUMMARY | 2023-10-11 12:42 | XMS_ITS | Encounter Summary ---
Author Name Unknown Organization [facility] Address [address] [place] [id number] Care Team Providers Care Gum Machine Operator Name Role Phone Elsewhere, Pcp Primary Care Provider Unavailabl e Reason for Referral * Outpatient (Routine) - Authorized Specialty Diagnoses / Procedures Referred By Elizabeth pat Referred To Contact Otorhinolaryngology Kelechi Arteaga M.D. [address] [place] [phone] [facility] Referral ID Status Reason Start Date Expiration Date V isits Requested Visits Authorized [id number] Authorized 01/28/2023 01/27/2026 1 1 Reason for Visit * Outpatient (Routine) - Closed Specialty Diagnoses / Procedures Referred By Elizabeth pat Referred To Contact Otorhinolaryngology Radha Pedroza P.A.-C., M.S. [address] [place] [phone] Kelechi Arteaga M.D. [address] [place] [phone] Referral ID Status Reason Start Date Expiration Date Visits Re quested Visits Authorized [id number] Closed 11/12/2022 11/11/2025 1 1 Encounter Details Date Type Department Care Team (Latest Contact Info) Description 01/28/2023 9:15 AM CDT Office Visit Department of Otorhinolaryngology in [place], [place] [address] [place] [phone] [place] [phone] Malignant Neoplasm Of Tonsil (HCC) (Primary Dx) Social History Tobacco Use Types [...] How often do you attend chur or moravian services? More than 4 times per year 07/30/2022 Do you belong to any clubs o r organizations such as rastafarian groups, unions, fraternal or athletic groups, or [...] Answer Date Recorded PHQ-2 Score 0 09/03/2022 [facility] - Occupational Stress Questionnaire Answer Date [...] place to sleep or slept in a retirement (including now)? No 07/30/2022 Nutrition Answer Date [...] Sex Assigned at Male 07/30/2022 11:39 AM OFFICE SPECIALIST Gender Identity Male 07/30/2022 11:39 AM OFFICE SPECIALIST Sexual Orientation Straight 07/30/2022 11 :39 AM OFFICE SPECIALIST documented as of this encounter Progress Notes * Kelechi Arteaga M.D. - 01/28/2023 9:15 AM CDT CHIEF COMPLAINT/REASON FOR VISIT Followup tongue base cancer. HISTORY OF PRESENT ILLNESS This is a supervisory note of Dr. Mireya Tejada. I have reviewed her history, physical, impression, report, plan and agree. In addition, I have interviewed and examined the patient myself. ASSESSMENT / PLAN #1 Followup tongue base cancer PLAN: Mr. Pratt is doing well, without evidence of recurrent disease. We will see him back. He requested 6-month followup, which I think is reasonable. They are aware of warning signs that should bring them back sooner. They are in agreement with that plan. * Mireya Tejada M.D. - 01/28/2023 9:15 AM CDT Otolaryngology-Head and Neck Surgery Subsequent Visit CHIEF COMPLAINT/PURPOSE OF VISIT: Surveillance for P16+ SCC Left OPX HISTORY OF PRESENT ILLNESS: Nehemias Pratt is a 62 y.o. male who is presenting for surveillance. Patient reports chemoradiation therapy completed at the end of Sep 2022 went well with no major issues. His voice is lower and raspier since treatment. He had decreased taste but has had some improvement of this. Continues to have thick mucous. He is gaining weight back and eating well. Has some pain at the angle of his right jaw. Had some swelling of bilateral submandibular area last week for 1 day which self resolved. Noteda left neck lump just this morning. 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 Current smoker. Recommended ultrasound with possible biopsy and referral to head and neck surgery 06/15/2022 Critical Imaging US soft tissue head neck Findings: Multiple enlarged hypoechoic lymph nodes present within the left side of neck corresponding to the area of palpable concern. The 2 largest lymph node measured 2.8 x 1.8 x 2.5 cm and 2.6 x 1.3 x 1.6 cm. No abnormal vascularity. Normal right-sided lymph nodes. 06/29/[address] soft tissue neck with contrast Findings: Asymmetry of the palatine tonsils with masslike enhancement on the left side extending into the left parapharyngeal space measuring approximately 3.3 cm x 3.8 cm. Multiple abnormal left level II lymph nodes that demonstrate heterogeneous or peripheral enhancement, measuring 2 x 1.9 x 1.8 cm at leftlevel IIA node, 1.5 x 1.5 x 1.2 cm left level IIB node, 2.5 x 1.8 x 1.7 cm left level 3 node. Nasopharyngeal, oropharyngeal, and hypopharyngeal mucosal spaces normal. Lucency adjacent to the 2nd right maxillary molar tooth Supraglottic, glottic, and infraglottic larynx normal Airway including the trachea normal and patent Parotid glands, submandibular and sublingual glands normal in appearance, thyroid gland normal in appearance. Scattered mild cervical spondylosis without spinal canal stenosis, no suspicious lytic or blastic osseous lesions Visualized paranasal sinuses and mastoid air cells clear. Rightward deviation of nasal septum with septal spur. Visualized orbital and intracranial contents normal Supraclavicular regions, mediastinum and soft tissues of the imaged chest yang normal Visualized portions of the upper lungs clear 07/09/[address] Kelechi Arteaga, ENT. Patient developed swelling in the left side of his neck after completing a COVID booster vaccine inspring 2021. This did not resolve which led him to being evaluated by his PCP. Initial ultrasound was inconclusive and proceeded to complete CT of the neck. CT of the neck demonstrated multiple cervical lymph nodes and was referred to ENT. 07/09/2022 Critical Imaging Flexible nasopharyngoscopy demonstrated left-sided nasal septal deviation, unremarkable nasopharynx, normal palate and uvula, and bilaterally mobile vocal cords. There was papillary exophytic lesion in the left glossotonsillar sulcus along the lateral aspect of the tongue base, not encroaching ontothe oral tongue or into the vallecula 07/10/2022 Critical Imaging US Head and Neck Soft Tissue FINDINGS: Sonographic survey of the neck reveals multiple (at least 6) enlarged left cervical lymph nodes, the largest measuring 2.5 x 1.3 x 2 cm. These lymph nodes are well-circumscribed and not taller than wide, however, do contain multiple echogenic foci and the larger nodes do not definitely demonstrate a fatty hilum 07/10/2022 Biopsy/Pathology US guided biopsy performed by Dr. Khalida Dallas Interpretation: A. Lymph node, Left neck, fine needle aspiration (smears/core biopsy): Positive for malignancy. Metastatic non-keratinizing squamous cell carcinoma. An immunostain for p16 is diffusely and strongly positive in the tumor cells. An immunostain for p40 is positive. In situ hybridization for E6/ E7 RNA is positive in the tumor cells. 08/01/2022 Critical Imaging PET-CT FINDINGS: Multiple radiotracer avid left mid cervical lymph nodes/adenopathy (level 2/3) with effacement of fat planes. For example left midcervical cluster of lymph nodes with maximum SUV of 6. Leftmidcervical lymph nodes with maximum SUV of 3.5. A few small right midcervical lymph nodes with mild FDG uptake. Asymmetric increased FDG uptake at the left tonsillar/base of tongue region with maximum SUV of 8 (contralateral side has maximum SUV of 5). Mildly increased FDG uptake at both adrenal glands, could be from benign adenomas or mild hyperplasia. Significant incidental findings on the noncontrast CT: Probably benign pulmonary cyst at the left lung base. Left renal cysts. Mild scattered vascular calcifications. Small fat-containing umbilical hernia. Scattered colonic diverticula. Urinary bladder diverticulum. Mild compression deformity alongthe superior endplate of T6 vertebra. No evidence of FDG avid distant metastasis. 08/06/2022 Multi-Disciplinary Conference Patient's information reviewed at multidisciplinary clinic. Discussed options of up-front surgery followed by adjuvant therapy of radiation and chemo or upfront chemoradiation therapy. Malignant Neoplasm Of Tonsil (HCC) 08/20/2022 - 10/16/2022 Radiation Therapy Radiation Therapy Treatment Details (08/27/2022 - 10/16/2022) Site: Left Tonsil Technique: IMRT Goal: Curative Planned Treatment Start Date: 08/20/2022 Radiation therapy to the left tonsil and left neck nodes to a dose of 7000 cGy in 35 fractions. Theleft neck nodes including RPN, levels Ib-V received 6300 cGy and the right neck levels RPN II-IV received 5600 cGy. PHYSICAL EXAM: Vital Signs: There were no vitals filed for this visit. General: Awake, alert, oriented, in no acute distress Head: Normocephalic, atraumatic Face: Symmetric. House-Brackmann 1/6 bilaterally. Nose: Nares patent bilaterally. Nasal mucosa appears pink and moist. Mouth: Remaining dentition healthy. There was no trismus. Oral mucosa was pink and moist. No lesions noted anywhere on the buccal or labial mucosa, or on the floor of mouth, soft or hard palate, or oral tongue. Tongue is midline and mobile. Palate elevation is symmetric. Uvula is midline. The floorof mouth was flat and soft. Neck: Normal range of motion. Trachea is midline. Left submandibular gland firm and enlarged. No saliva production with milking the gland. No expression of purulence either. Thyroid was normal in size and there were no palpable nodules. Neuro: Cranial nerves II-XII were grossly intact. The voice is strong without hoarseness or breathiness. Laryngoscopy: A comprehensive upper airway exam was performed using a flexible fiberoptic scope under topical anesthesia. Verbal consent was obtained and universal protocol was followed. The left naris was anesthestized using oxymetazoline with tetracaine nasal spray. The endoscope was passed gently along the floor of the nose. The left nasal cavity was unremarkable. The nasopharynx was without masses or lesions. The scope was passed in to the oropharynx. There were no masses or lesions appreciable here. Theposterior pharyngeal wall and palatine tonsils were non-erythematous without exudates. The base of tongue, vallecula, lingual tonsils, epiglottis, were all unremarkable. The pyriform sinuses, arytenoids, aryepiglottic folds were without masses or lesions. Some mild left arytenoid edema. The vocal cords were visualized and appeared symmetrically mobile on abduction and adduction. There were no nodules, granulomas, or papillomas visualized on the vocal cords. Full glottic closure can be achieved with phonation. The subglottis was briefly visualized and appeared patent without edema or stenosis.The endoscope was then withdrawn atraumatically and the patient tolerated the procedure well. Assessment/Plan: #1 Malignant Neoplasm Of Tonsil (HCC) #2 Status post Chemoradiation completed in 09/2022 Nehemias Pratt is a 62 y.o. 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 He states that he tolerated the treatment very well and has some side effects which are minimally bothersome. Has had some neck swelling on and off and noted left submandibular swelling today likely his submandibular gland. Recommended staying hydrated with lots of water and massaging the gland as there is not much saliva production from that gland on exam today. Otherwise no worrisome exam findings and PET CT is clear. Patient prefers to follow up in 6 months instead of 4 months due to cost. Our recommendations are as follows: Follow-up: 6 months for physical examination in Survivorship [facility]; no imaging required Patient will reach out with concerns that arise before then documented in this encounter Plan of Treatment Scheduled Referrals Name Type Priority Associated Diagnoses Order Schedule Otorhinolaryngology office visit (clinic) Outpatient Referral Routine Expected: 07/31/2023 (Approximate), Expires: 04/30/2024 documented as of this encounter Visit Diagnoses Diagnosis Malignant Neoplasm Of Tonsil (HCC)- Primary documented in this encounter Care Teams Gum Machine Operator Relationship Specialty Start Date End Date Elsewhere, Pcp PCP - General Internal Medicine 12/26/22 documented as of this encounter
--- OUTSIDE RECORDS SUMMARY | 2023-10-11 12:42 | XMS_ITS | Encounter Summary ---
Author Name Unknown Organization [facility] Address [address] [place] [address] Care Team Providers Care Public Service Administrator Name Role Phone Unavailable Primary Care Provider Unavailabl e Reason for Visit * Reason Comments Med Refill Encounter Details Date Type Department Care Team (Late st Contact Info) Description 11/20/2022 Refill Department of Radiation Oncology in [place], [place] [address] [place] [phone] Magaly Vallejo M.D. [address] [place] [phone] Med Refill Social History Tobacco Use Types Packs/Day Years [...] often do you attend chur ch or scientologist services? More than 4 times per year 07/30/2022 Do you belong to any clubs o r organizations such as caodaism groups, unions, fraternal or athletic groups, or [...] Date Recorded PHQ-2 Score 0 09/03/2022 [facility] - [...] place to sleep or slept in a senior living (including now)? No 07/30/2022 Nutrition Answer Date [...] Sex Assigned at Male 07/30/2022 11:39 AM DIGESTER OPERATOR Gender Identity Male 07/30/2022 11:39 AM DIGESTER OPERATOR Sexual Orientation Straight 07/30/2022 11 :39 AM DIGESTER OPERATOR documented as of this encounter Plan of Treatment Not on file documented as of this encounter Visit Diagnoses Not on filedocumented in this encounter
--- OUTSIDE RECORDS SUMMARY | 2023-10-11 12:42 | XMS_ITS | Encounter Summary ---
Author Name Unknown Organization [facility] Address [address] [place] [address] Care Team Providers Care Electric Vehicle Electrician Name Role Phone Elsewhere, Pcp Primary Care Provider Unavailabl e Reason for Visit * Reason Onset Date Comments Nicotine Dependence 01/17/2023 Encounter Details Date Type Department Care Team (Latest Contact Info) Description 01/17/2023 Clinical Communication Department of Nicotine Dependence, [facility], in [place], [place] [address] [place] [phone] Aditya Miles V., Ed.D. [address] [place] [phone] Nicotine Dependence Social History Tobacco Use Types Packs/Day Years [...] often do you attend chur ch or samaritan services? More than 4 times per year [...] Answer Date Recorded PHQ-2 Score 0 09/03/2022 [facility] - [...] Sex Assigned at Male 07/30/2022 11:39 AM GARMENT MANUFACTURER Gender Identity Male 07/30/2022 11:39 AM GARMENT MANUFACTURER Sexual Orientation Straight 07/30/2022 11 :39 AM GARMENT MANUFACTURER documented as of this encounter Plan of Treatment Not on file documented as of this encounter Visit Diagnoses Not on filedocumented in this encounter Care Teams Electric Vehicle Electrician Relationship Specialty Start Date End Date Elsewhere, Pcp PCP - General Internal Medicine 12/26/22 documented as of this encounter
--- OUTSIDE RECORDS SUMMARY | 2023-10-11 12:42 | XMS_ITS | Encounter Summary ---
Author Name Unknown Organization [facility] Address [address] [place] [address] Care Team Providers Care Lorry Weigher Name Role Phone Unavailable Primary Care Provider Unavailabl e Encounter Details Date Type Department Care Team (Late st Contact Info) Description 11/16/2022 Orders Only Department of Radiation Oncology in [place], [place] [address] [place] [phone] Magaly Vallejo M.D. [address] [place] [phone] Social History Tobacco Use Types Packs/Day Years [...] often do you attend chur ch or mandaeism services? More than 4 times per year 07/30/2022 Do you belong to any clubs o r organizations such as denominational groups, unions, fraternal or athletic groups, or [...] Answer Date Recorded PHQ-2 Score 0 09/03/2022 [facility] - Occupational Stress [...] place to sleep or slept in a alf (including now)? No 07/30/2022 Nutrition Answer Date [...] Sex Assigned at Male 07/30/2022 11:39 AM VENEER SORTER Gender Identity Male 07/30/2022 11:39 AM VENEER SORTER Sexual Orientation Straight 07/30/2022 11 :39 AM VENEER SORTER documented as of this encounter Plan of Treatment Not on file documented as of this encounter Visit Diagnoses Not on filedocumented in this encounter
--- OUTSIDE RECORDS SUMMARY | 2023-10-11 12:42 | XMS_ITS | Encounter Summary ---
Author Name Unknown Organization [facility] Address [address] [place] [address] Care Team Providers Care Rolfer Name Role Phone Unavailable Primary Care Provider Unavailabl e Encounter Details Date Type Department Care Team (Late st Contact Info) Description 11/21/2022 Clinical Communication Department of Radiation Oncology in [place], [place] [address] [place] [phone] Magaly Vallejo M.D. [address] [place] [address] Social History Tobacco Use Types Packs/Day Years [...] often do you attend chur ch or rastafari services? More than 4 times per year [...] Answer Date Recorded PHQ-2 Score 0 09/03/2022 [facility] - Occupational Stress Questionnaire Answer Date [...] Sex Assigned at Male 07/30/2022 11:39 AM MANAGER BUSINESS INTELLIGENCE Gender Identity Male 07/30/2022 11:39 AM MANAGER BUSINESS INTELLIGENCE Sexual Orientation Straight 07/30/2022 11 :39 AM MANAGER BUSINESS INTELLIGENCE documented as of this encounter Plan of Treatment Not on file documented as of this encounter Visit Diagnoses Not on filedocumented in this encounter
--- OUTSIDE RECORDS SUMMARY | 2023-10-11 12:42 | XMS_ITS | Encounter Summary ---
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 [address] [place] [address] [facility] Referral ID Status Reason Start Date Expiration Date Visits Re quested Visits Authorized [id number] Closed 11/12/2022 11/12/2023 1 1 Encounter Details Date Type Department Care Team (Latest Contact Info) Description 01/22/2023 10:33 AM CDT - 01/22/2023 11:59 PM CDT Hospital Encounter Department of Radiology in [place], [place] [address] [place] [address] Radha Pedroza P.A.-C., M.S. [address] [place] [address] Malignant Neoplasm Of Tonsil (HCC); Secondary Malignant Neoplasm Lymph Node Neck (HCC) Discharge Disposition: Home or Self Care Social History Tobacco Use Types Packs/Day Years [...] often do you attend chur ch or uatsdin services? More than 4 times per year 07/30/2022 Do you belong to any clubs o r organizations such as sikhism groups, unions, fraternal or athletic groups, or [...] Answer Date Recorded PHQ-2 Score 0 09/03/2022 [facility] - Occupational Stress [...] place to sleep or slept in a residential (including now)? No 07/30/2022 Nutrition Answer Date [...] Sex Assigned at Male 07/30/2022 11:39 AM AUTOMOBILE CONTRACT CLERK Gender Identity Male 07/30/2022 11:39 AM AUTOMOBILE CONTRACT CLERK Sexual Orientation Straight 07/30/2022 11 :39 AM AUTOMOBILE CONTRACT CLERK documented as of this encounter Medications at Time of Discharge Medication Sig Dispensed Refills Start Date End Date levothyroxine (SYNTHROID, LEVOTHROID) 175 mcg tablet Take 175 mcg by mouth daily. 0 06/12/2022 mirtazapine (REMERON) 7.5 mg tablet Take 7.5 mg by mouth at bedtime. 0 12/06/2022 omeprazole (PriLOSEC) [address] capsule Take 20 mg by mouth daily. 0 06/27/2022 tadalafiL (CIALIS) 10 mg tablet TAKE 1 TABLET BY MOUTH DIRTECTED NEEDED FOR SEXUAL ACTIVITY. 0 05/29/2022 tamsulosin (FLOMAX) 0.4 mg 24 hr capsule Take 0.8 mg by mouth daily. 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 ??Interval resolution of FDG avid uptake in the left tonsillar bed. 2. ??Interval resolution of hypermetabolic left cervical lymphadenopathy. 3. ??No new FDG avid disease in the neck. Narrative 01/22/2023 3:43 PM CDT EXAM: PET CT SKULL TO THIGH FDG COMPARISON: Whole-body FDG PET/CT, 08/01/2022. RADIOPHARMACEUTICAL/MEDS: Route: intravenous fludeoxyglucose F 18 injection SHELTER (FDG F-18),13.5 millicurie TECHNIQUE: F-[address] scan was performed from the mid calvarium through the upper thighs with CT fusion imaging for attenuation correction, anatomic coregistration, and respiratory gating only. Serum glucose at time of F-18 FDG injection: 98 mg/dL. Uptake time: 60 minutes following injection. The patient reports no recent vaccinations. FINDINGS Physiologic mediastinal blood pool activity: Max SUV of 1.8. Physiologic liver parenchymal activity: Max SUV of 2.7. HEAD AND NECK: No gross abnormal metabolic uptake of tracer in the brain parenchyma is noted, however, MRI with contrast is more sensitive for detection of most brain lesions. There is resolution of FDG uptake in the left tonsillar bed. Resolution of hypermetabolic uptake in previously noted left cervical lymph nodes. There is no new FDG-avid disease or hypermetabolic lymphadenopathy in the neck. Diffuse uptake in the left masseter muscle likely represent increased activity versus nonspecific myositis, unchanged. CHEST: There is no FDG-avid disease in the chest. There is no hypermetabolic axillary, mediastinal or hilar lymphadenopathy. No pleural or pericardial effusion. ABDOMEN/PELVIS: Physiologic tracer distribution throughout the gastrointestinal and genitourinary tracts is noted. There is no hypermetabolic lymphadenopathy, and no FDG-avid disease. MUSCULOSKELETAL: There is no FDG-avid bone lesion. Procedure Note Ernst Barrera M.B., Eduardo MKena - 01/22/2023 EXAM: PET CT SKULL TO THIGH FDG COMPARISON: Whole-body FDG PET/CT, 08/01/2022. RADIOPHARMACEUTICAL/MEDS: Route: intravenous fludeoxyglucose F 18 injection SHELTER (FDG F-18),13.5 millicurie TECHNIQUE: F-[address] scan was performed from the mid calvarium through theupper thighs with CT fusion imaging for attenuation correction, anatomic coregistration, andrespiratory gating only. Serum glucose at time of F-18 FDG injection: 98 mg/dL. Uptake time: 60 minutes following injection. The patient reports no recent vaccinations. FINDINGS Physiologic mediastinal blood pool activity: Max SUV of 1.8. Physiologic liver parenchymal activity: Max SUV of 2.7. HEAD AND NECK: No gross abnormal metabolic uptake of tracer in the brainparenchyma is noted, however, MRI with contrast is more sensitive for detection of most brainlesions. There is resolution of FDG uptake in the left tonsillar bed. Resolution ofhypermetabolic uptake in previously noted left cervical lymph nodes. There is no new FDG-aviddisease or hypermetabolic lymphadenopathy in the neck. Diffuse uptake in the left masseter muscle likely represent increasedactivity versus nonspecific myositis, unchanged. CHEST: There is no FDG-avid disease in the chest. There is nohypermetabolic axillary, mediastinal or hilar lymphadenopathy. No pleural or pericardial effusion. ABDOMEN/PELVIS: Physiologic tracer distribution throughout thegastrointestinal and genitourinary tracts is noted. There is no hypermetabolic lymphadenopathy, and noFDG-avid disease. MUSCULOSKELETAL: There is no FDG-avid bone lesion. IMPRESSION: 1. Interval resolution of FDG avid uptake in the left tonsillar bed. 2. Interval resolution of hypermetabolic left cervical lymphadenopathy. 3. No new FDG avid disease in the neck. Radha Pedroza P.A.-C., M.S. 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
--- OUTSIDE RECORDS SUMMARY | 2023-10-11 12:42 | XMS_ITS ---
Author Name Unknown Organization [facility] Address [address] [place] [address] Care Team Providers Care Copywriting Intern Name Role Phone Elsewhere, Pcp Primary Care Provider Unavailabl e Active Problems Problem Noted Date Diagnosed Date Malignant Neoplasm Of Tonsil 08/08/2022 Cancer Staging:Clinical stage from 07/10/2022:Stage I(cT2, cN1, cM0, p16+) - Unsigned Mass Tonsil 07/09/2022 Secondary Malignant Neoplasm Lymph Node Neck Current Oncology Plans No current plan information found. Past Plans No past plan information found. Radiation Treatments * Plan Last Treated On Elapsed Days Fractions Treated Prescribed Fraction Dose Prescribed Total Dose F1Opx 10/16/2022 50 35 of 35 200 cGy 7,000 cGy Reference Point Last Treated On Elapsed Days Session Dose Total Dose [id number] 10/16/2022 50 200 cGy 7,000 cGy
--- OUTSIDE RECORDS SUMMARY | 2023-10-11 12:42 | XMS_ITS | Encounter Summary ---
Author Name Unknown Organization [facility] Address [address] [place] [address] Care Team Providers Care Distribution Lead Name Role Phone Elsewhere, Pcp Primary Care Provider Unavailabl e Encounter Details Date Type Department Care Team (Latest Contact Info) Description 01/28/2023 11:10 AM CDT Ancillary Procedure Department of Otorhinolaryngology Social History Tobacco Use Types Packs/Day Years [...] often do you attend chur ch or restorationism services? More than 4 times per year 07/30/2022 Do you belong to any clubs o r organizations such as voodoo groups, unions, fraternal or athletic groups, or [...] Answer Date Recorded PHQ-2 Score 0 09/03/2022 [facility]at ional [facility] - [...] place to sleep or slept in a fdc (including now)? No 07/30/2022 Nutrition Answer Date [...] Sex Assigned at Male 07/30/2022 11:39 AM LAW ENFORCEMENT INSTRUCTOR Gender Identity Male 07/30/2022 11:39 AM LAW ENFORCEMENT INSTRUCTOR Sexual Orientation Straight 07/30/2022 11 :39 AM LAW ENFORCEMENT INSTRUCTOR documented as of this encounter Plan of Treatment Not on file documented as of this encounter Procedures Procedure Name Priority Date/Time Associated Diagnosis Comments OTORHINOLARYNGOLOGY IMAGE EXAM Routine 01/28/2023 10:54 AM CDT documented in this encounter Results * SCOPE-Otorhinolaryngology Image Exam (01/28/2023 10:54 AM CDT) 01/28/2023 11:0 6 AM CDT Narrative [facility] - 01/28/2023 10:54 AM CDT This order has been created and auto-finalized to support the import of images acquired without order. The clinical documentation to support these images can be found on the encounter that produced images. Provider Not In System IMG NON RAD IMAGI NG PROCEDURES [facility] NA documented in this encounter Visit Diagnoses Not on filedocumented in this encounter Care Teams Distribution Lead Relationship Specialty Start Date End Date Elsewhere, Pcp PCP - General Internal Medicine 12/26/22 documented as of this encounter
--- OUTSIDE RECORDS SUMMARY | 2023-10-11 12:42 | XMS_ITS | Encounter Summary ---
Author Name Unknown Organization [facility] Address [address] [place] [address] Care Team Providers Care Remote Advisor Name Role Phone Elsewhere, Pcp Primary Care Provider Unavailabl e Reason for Visit * Reason Onset Date Comments Pre-visit Intake 12/26/2022 Encounter Details Date Type Department Care Team (Latest Contact Info) Description 12/26/2022 1:45 PM CDT Clinical Communication Virtual Review in [place], [place] [address] [place], [place] [phone] Pre-visit Intake Social History Tobacco Use Types Packs/Day Years [...] often do you attend chur ch or zoroastrian services? More than 4 times per year 07/30/2022 Do you belong to any clubs o r organizations such as jainism groups, unions, fraternal or athletic groups, or [...] Answer Date Recorded PHQ-2 Score 0 09/03/2022 [facility] - Occupational Stress Questionnaire Answer Date [...] place to sleep or slept in a group home (including now)? No 07/30/2022 Nutrition Answer Date [...] Sex Assigned at Male 07/30/2022 11:39 AM DIE WELDER Gender Identity Male 07/30/2022 11:39 AM DIE WELDER Sexual Orientation Straight 07/30/2022 11 :39 AM DIE WELDER documented as of this encounter Plan of Treatment Not on file documented as of this encounter Visit Diagnoses Not on filedocumented in this encounter Care Teams Remote Advisor Relationship Specialty Start Date End Date Elsewhere, Pcp PCP - General Internal Medicine 12/26/22 documented as of this encounter
--- OUTSIDE RECORDS SUMMARY | 2023-10-11 12:42 | XMS_ITS | Encounter Summary ---
Author Name Unknown Organization [facility] Address [address] [place] [address] Care Team Providers Care Paver Operator Name Role Phone Unavailable Primary Care Provider Unavailabl e Reason for Referral * Outpatient (Routine) - Authorized Specialty Diagnoses / Procedures Referred By Contac t Referred To Contact Radiation Oncology Radha Pedroza P.A.-C., M.S. [address] [place] [phone] [facility] Referral ID Status Reason Start Date Expiration Date V isits Requested Visits Authorized [id number] Authorized 11/12/2022 11/11/2025 1 1 Scheduling Instructions PET-CT and visit with Dr. Chandler alford in [place] T END DEVELOPER DESIGNER * Outpatient (Routine) - Closed Specialty Diagnoses / Procedures Referred By Contac t Referred To Contact Otorhinolaryngology Radha Pedrzoa P.A.-C., M.S. [address] [place] [phone] Kelechi Arteaga M.D. 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 200 [place] [phone] [facility] Referral ID Status Reason Start Date Expiration Date Visits Re quested Visits Authorized [id number] Closed 11/12/2022 11/12/2023 1 1 T END DEVELOPER DESIGNER * Outpatient (Routine) - Closed Specialty Diagnoses / Procedures Referred By Contac t Referred To Contact Radiation Oncology Magaly Vallejo M.D. 200 [place] [address] [facility] Referral ID Status Reason Start Date Expiration Date Visits Re quested Visits Authorized [id number] Closed 10/11/2022 10/10/2025 1 1 T END DEVELOPER DESIGNER Reason for Visit * Outpatient (Routine) - Closed Specialty Diagnoses / Procedures Referred By Elizabeth t Referred To Contact Radiation Oncology [place] [address] [facility] Referral ID Status Reason Start Date Expiration Date Visits Re quested Visits Authorized [id number] Closed 10/11/2022 10/10/2025 1 1 Encounter Details Date Type Department Care Team (Latest Contact Info) Description 11/12/2022 2:52 PM FRONT END DEVELOPER DESIGNER - 11/13/2022 5:09 PM FRONT END DEVELOPER DESIGNER Hospital Encounter Department of Radiation Oncology in [address] [phone] Magaly Vallejo M.D. [address] [place] [address] [place] [phone] Malignant Neoplasm Of Tonsil (HCC) (Primary Dx); Secondary Malignant Neoplasm Lymph Node Neck (HCC) Social History Tobacco Use Types Packs/Day Years [...] often do you attend chur ch or sabianist services? More than 4 times per year 07/30/2022 Do you belong to any clubs o r organizations such as adventist groups, unions, fraternal or athletic groups, or [...] Answer Date Recorded PHQ-2 Score 0 09/03/2022 [facility] of Occupat ional Health - Occupational Stress [...] Sex Assigned at Male 07/30/2022 11:39 AM FRONT END DEVELOPER DESIGNER Gender Identity Male 07/30/2022 11:39 AM FRONT END DEVELOPER DESIGNER Sexual Orientation Straight 07/30/2022 11 :39 AM FRONT END DEVELOPER DESIGNER documented as of this encounter Last Filed Vital Signs Vital Sign Reading Time Taken Comments Blood Pressure 114/70 11/12/2022 3:00 PM FRONT END DEVELOPER DESIGNER Pulse 77 11/12/2022 3:00 PM FRONT END DEVELOPER DESIGNER Temperature 36.7 ??C (98.1 ??F) 11/12/2022 3:00 PM CS T Respiratory Rate - - Oxygen Saturation - - Inhaled Oxygen Concentration - - Weight 77.4 kg (170 lb 10.2 oz) 11/12/2022 3:00 PM FRONT END DEVELOPER DESIGNER Height - - Body Mass Index 26.72 09/13/2022 4:16 PM FRONT END DEVELOPER DESIGNER documented in this encounter Medications at Time of Discharge Medication Sig Dispensed Refills Start Date End Date levothyroxine (SYNTHROID, LEVOTHROID) 175 mcg tablet Take 175 mcg by mouth daily. 0 06/12/2022 omeprazole (PriLOSEC) [address] capsule Take 20 mg by mouth daily. 0 06/27/2022 tadalafiL (CIALIS) 10 mg tablet TAKE 1 TABLET BY MOUTH DIRTECTED NEEDED FOR SEXUAL ACTIVITY. 0 05/29/2022 tamsulosin (FLOMAX) 0.4 mg 24 hr capsule Take 0.8 mg by mouth daily. 0 06/08/2022 atorvastatin (LIPITOR) 40 mg tablet Take 40 mg by mouth at bedtime. 0 06/12/2022 12/26/2022 buPROPion XL (WELLBUTRIN XL) 150 mg 24 hr tablet TAKE 1 TABLET ORALLY EVERY MORNING 0 06/08/2022 12/26/2022 diphenhydramine-lidoca ine 2 %-antacid (mw) Take 5-10 mL by mouth 4 (four) times a day before meals and bedtime. Swish and spit. 240 mL 2 10/19/2022 12/26/2022 LORazepam (ATIVAN) 0.5 mg tablet Take 0.5 mg by mouth daily. 0 08/20/2022 12/26/2022 oxyCODONE (ROXICODONE) 5 mg immediate release tabletIndications:Acut e Pain Exception Take 1 tablet (5 mg total) by mouth every 4 (four) hours as needed for pain Indication: Acute Pain Exception. 30 tablet 0 10/26/2022 12/26/2022 prochlorperazine (COMPAZINE) 10 mg tablet Take 10 mg by mouth daily. 0 08/20/2022 11/16/2022 documented as of this encounter Progress Notes * Radha Pedroza P.A.-C., M.S. - 11/12/2022 3:00 PM CST SUBJECTIVE DIAGNOSIS 1. Malignant Neoplasm Of Tonsil (HCC) SUPERVISED BY: Magaly Vallejo M.D. HISTORY OF PRESENT ILLNESS Mr. 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 He completed radiation therapy on October 16, 2022 with weekly cisplatin chemotherapy administered at the [facility]. His oncologic history is as follows: Oncology History Secondary Malignant Neoplasm Lymph Node [...] neck levels RPN II-IV received 5600 cGy. INTERVAL HISTORY The patient was seen and examined today with Dr. Vallejo. The patient reports doing well overall. He reports good energy levels. He is continuing to work a couple of days per week. He does report that he gets tired easier than he used to. He reports improvement in eating, but he is still having difficulty with solid foods due to the effort to chew and thelack of flavor. He reports continuing to have Twilight Instant Breakfast as well as two Ensure or Boost per day. He is also taking in soft foods such as oatmeal, potatoes, salad, and ice cream. He was receiving IV fluids at the [facility] through last week, with Saturday beinghis last day. He reports that his weight has been stable there the last 3 weeks. He reports improvement in pain, now only reporting occasional discomfort with irritation such as salty food. He takes Tylenol occasionally. He denies any skin concerns. He reports patches of spivey hair regrowth. He denies thrush and reports that it resolved after taking Diflucan. He reports increased saliva production. He reports that he just had a dental cleaning and denies issues. He would like to be considered for dental implants in the future to help with his chewing. He denies range of motion limitations or lymphedema. He had diarrhea last night, which he relates to eating extra fruit. REVIEW OF SYSTEMS Review of systems was negative except as documented above. OBJECTIVE BP 114/70 (BP Location: Right arm, Patient Position: Sitting) Pulse 77 Temp 36.7 ??C (Temporal) Wt 77.4 kg BMI 26.72 kg/m?? WEIGHT August 28, 2022: 95.7 kg September 04, 2022: 94.4 kg September 11, 2022: 96.5 kg September 14, 2022: 95.7 kg October 16, 2022: 81.5 kg October 19, 2022: 81.8 kg November 12, 2022: 77.4 kg PHYSICAL EXAM General: Patient is alert and oriented in no apparent distress. ENT: Healing mucositis of the left posterior oral cavity. No evidence of thrush. Good mouth opening. Neck: Good neck range of motion. No lymphedema. Skin: Mild hypo and hyperpigmentation of the anterior neck. No desquamation. Lymph: No palpable cervical, supraclavicular, or infraclavicular lymphadenopathy. 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 He has lost a significant amount of weight during radiation therapy and in recovery, but he reports that his weight has been stablethe last few weeks now. He is continuing to eat primarily soft foods and is also supplementing withCarnation Instant Breakfast as well as Ensure and Boost. We discussed good nutritional intake to maintain or gain back some weight to help with his treatment recovery. His mouth and throat discomfortis well managed with occasional Tylenol. His skin has healed well. We discussed the plan for proceeding with a PET-CT scan in 2 months in [place] as well as follow-up with Dr. Arteaga in [place]. We willalso order for a return visit to be scheduled here after his Alejandrina appointments. The patient will contact us with questions or concerns. He verbally expressed his understanding of the plan. EDUCATION Ready to learn, no apparent learning barriers were identified; learning preferences include listening. Explained diagnosis and treatment plan; patient expressed understanding of the content. I personally spent 27 minutes in care of the patient today. Time includes both non face to face andface to face patient care. Signed by: Radha Pedroza P.A.-C., MYassineS. 11/12/2022 4:17 PM FRONT END DEVELOPER DESIGNER [facility] [address] [place] [address] T END DEVELOPER DESIGNER Associated attestation - Magaly Vallejo M.D. - 11/13/2022 5:09 PM FRONT END DEVELOPER DESIGNER I saw and evaluated the patient and participated in the tyler portions of the service. I reviewed thedocumentation of Ms. Radha Pedroza PA-C, [place] and agree with the findings and plan. The only difference in the exam is that I can still appreciate a level 3 LN on the left side that feels about 1.5cm and is mobile. His skin has healed well. I see no mucositis or thrush in his mouth. He feels his weight loss has now stabilized. We will see him back in [address] Steven Arteaga and a PET/CT in [place]. He will contact his dentist about dental trays and Prevident gel. He thinks he might have been given Prevident toothpaste. His questions were answered; he was comfortable with this plan. Magaly Vallejo M.D., 11/12/2022 documented in this encounter Plan of Treatment Scheduled Referrals Name Type Priority Associated Diagnoses Order Schedule Radiation Oncology office visit (clinic) Outpatient Referral Routine Once for 1 Occurrences starting 11/12/2022 until 11/12/2022 Return to provider in another specialty Outpatient Referral Routine Expected: (Approximate), Expires: 02/10/2024 Radiation Oncology office visit (clinic) Outpatient Referral Routine Expected: (Approximate), Expires: 11/12/2023 documented as of this encounter Results * PET CT Skull [...] RADIOPHARMACEUTICAL/MEDS: Route: intravenous fludeoxyglucose F 18 injection CARE HOME (FDG F-18),13.5 millicurie TECHNIQUE: F-18 FDG PET [...] bone lesion. Procedure Note Ernst Barrera M.B., Yessy Clark - 01/22/2023 EXAM: PET CT SKULL TO THIGH FDG COMPARISON: Whole-body FDG PET/CT, 08/01/2022. RADIOPHARMACEUTICAL/MEDS: Route: intravenous fludeoxyglucose F 18 injection CARE HOME (FDG F-18),13.5 millicurie TECHNIQUE: F-18 FDG PET [...] new FDG avid disease in the neck. Rosa Ferguson P.A.-C..S. [facility] [place] PROCEDU RES documented in this encounter Visit Diagnoses Diagnosis Malignant Neoplasm Of Tonsil (HCC)- Primary Secondary Malignant Neoplasm Lymph Node Neck (HCC) Malignant Neoplasm Of Tonsil (HCC) Secondary Malignant Neoplasm Lymph Node Neck (HCC) documented in this encounter
--- OUTSIDE RECORDS SUMMARY | 2023-10-11 12:42 | XMS_ITS | Encounter Summary ---
Author Name Unknown Organization [facility] Address [address] [place] [address] Care Team Providers Care Cutting Machine Tender Helper Name Role Phone Elsewhere, Pcp Primary Care Provider Unavailabl e Encounter Details Date Type Department Care Team (Late st Contact Info) Description 12/05/2022 Clinical Communication Department of Radiation Oncology in [place], [place] [address] [place] [phone] Magaly Vallejo M.D. [address] [place] [address] Social History Tobacco Use Types Packs/Day Years [...] often do you attend chur ch or anabaptist services? More than 4 times per year [...] Answer Date Recorded PHQ-2 Score 0 09/03/2022 [facility] of Occupat ional Health - Occupational Stress [...] Sex Assigned at Male 07/30/2022 11:39 AM FRUIT SORTER Gender Identity Male 07/30/2022 11:39 AM FRUIT SORTER Sexual Orientation Straight 07/30/2022 11 :39 AM FRUIT SORTER documented as of this encounter Miscellaneous Notes * Telephone Encounter - Melinda Dave R.N. - 12/05/2022 3:57 PM CDT SUBJECTIVE CHIEF COMPLAINT / REASON FOR CALL Ongoing fatigue and poor appetite ASSESSMENT Patient continues to experience ongoing fatigue and poor appetite post radiation treatment. He reports that the ongoing fatigue his effecting his ability to work. Patient reports that it is hard to eat enough because he gets full so fast and doesn't feel hungry. Patient reports that he is drinking 32 oz of water a day. He is eating small frequent meals throughout the day. Patient reports that tomorrow he has appointment to get lab work checked and he his primary care provider. PLAN Encouraged the patient increase hydration by drinking at least 64 oz of non- caffeinated liquid per day. Patient should increase the amount of calories he is consuming by eating more nutrient/calorie dense foods and increasing protein intake. He should continue to eat small frequent meals. We discussed adding Benecalorie to foods/smoothies. We also discussed drinking high calorie Boost and Ensure.I offered the patient a visit with our dietitian. He declined at this time. Patient verbalized he was going to see how he felt over the next week and if he was still struggling with fluid/food intakehe would reach out to our care team. Disposition/Recommendation: self-care - appropriate at this time, patient encouraged to call back with questions. Information/Education: patient/caller able to teach back. Caller agreeable to plan of care: yes. The following references were used: nursing clinical judgement. * Telephone Encounter - Anisha Perez - 12/05/2022 10:56 AM CDT Caller: Deepti, patient's spouse Is there a valid authorization to speak with caller? Yes Primary Radiation Oncologist: Dr. Vallejo Reason for call: Patient's spouse is calling because patient is generally still feeling very weak. He has not been feeling well enough for work. They would like to know what to do regarding his symptoms. Phone number: [phone] Is it okay to leave a voicemail on answering machine with test results? Yes Pharmacy (if medication related): N/A Anisha Perez documented in this encounter Plan of Treatment Not on file documented as of this encounter Visit Diagnoses Not on filedocumented in this encounter Care Teams Cutting Machine Tender Helper Relationship Specialty Start Date End Date Elsewhere, Pcp PCP - General Internal Medicine 12/26/22 documented as of this encounter
--- OUTSIDE RECORDS SUMMARY | 2023-10-11 12:42 | XMS_ITS | Encounter Summary ---
Author Name Unknown Organization [facility] Address [address] [place] [address] Care Team Providers Care Configuration Management Architect Name Role Phone Unavailable Primary Care Provider Unavailabl e Reason for Visit * Reason Onset Date Comments Follow-up 10/26/2022 Encounter Details Date Type Department Care Team ([facility] st Contact Info) Description 10/26/2022 Clinical Communication Department of Radiation Oncology in [place], [place] [address] [place] [phone] Magaly Vallejo M.D. [address] [place] [address] Follow-up Social History Tobacco Use Types Packs/Day Years [...] any clubs o r organizations such as religion groups, unions, fraternal or athletic groups, or [...] Answer Date Recorded PHQ-2 Score 0 09/03/2022 [facility] - Occupational Stress Questionnaire Answer Date [...] place to sleep or slept in a prison (including now)? No 07/30/2022 Nutrition Answer Date [...] Sex Assigned at Male 07/30/2022 11:39 AM MAKEUP EDITOR Gender Identity Male 07/30/2022 11:39 AM MAKEUP EDITOR Sexual Orientation Straight 07/30/2022 11 :39 AM MAKEUP EDITOR documented as of this encounter Miscellaneous Notes * Telephone Encounter - Sapna Mckeon R.N. - 10/26/2022 1:26 PM CST Information Discussed I returned patient's phone call today and talked with him and his , Deepti today. Patient reports that his pain is under good control with taking Tylenol and Oxycodone. He reports that he takes 4-5 Oxycodone tablets a day. His reports that he is not eating due to nausea. He has not been taking his prescribed anti-emetics on a schedule. Patient denies fevers or chills. Patient notes that he is taking in jello, ice cream and Ensure Clears. Patient is requesting refill of Oxycodone today. Of note, patient is received 2 L of IV fluid Mondays, Wednesdays and Fridays at [facility]. His labs will be checked again this coming Saturday. PLAN Dr. Vallejo will send in Oxycodone prescription refill to [facility] in [place] today. I discussed with Deepti and patient that Compazine can be taken every 6 hours for management of nausea and Zofrancan be taken every 8 hours for management of nausea. He will start taking Compazine more on a schedule. He will set an alarm for every 4 hours and if he is experiencing nausea, he is to alternate Compazine and Zofran. Patient can take 1000 mg of extra strength Tylenol every 6 hours. Patient can take Oxycodone for breakthrough pain every 4 hours as needed. Again, he will check in with himself every 4 hours on pain level. We discussed nutrition management today. We discussed homemade ice cream shakes in a pedicab driver mixed with milk, fruit and honey to help increase daily caloric intake. We also discussed trialing creamed soups. Jello is to be mixed with pureed fruit to again increase caloric intake. He is to increase daily intake of Ensure Clears. We discussed that increased protein and caloric intake will help with the healing processs post treatment. Patient declined Wire Spinner visit this coming . I have reviewed plan of care with Dr. Vallejo today. Disposition/Recommendation: self-care - appropriate at this time, patient encouraged to call back with questions Information/Education: patient/caller able to teach back Caller agreeable to plan of care: yes The following references were used: provider Dr. Vallejo UP EDITOR * Telephone Encounter - Anisha Perez - 10/26/2022 11:49 AM CST Caller: Patient Is there a valid authorization to speak with caller? Yes Primary Radiation Oncologist: Dr. Vallejo Reason for call: Patient and his called regarding a refill of his pain medication. He is currently getting fluids at [facility] but only has 5 pills remaining and does not think that will last through the weekend. Phone number: [phone] Is it okay to leave a voicemail on answering machine with test results? Yes Pharmacy (if medication related): [id number] [place], [place] - [address] [address] [facility] [address] [address] [facility] [phone] [id number] - [place], [place] - [address] [facility] [address] [id number] [facility] [phone] Anisha Perez, UP EDITOR documented in this encounter Plan of Treatment Not on file documented as of this encounter Visit Diagnoses Not on filedocumented in this encounter
--- OUTSIDE RECORDS SUMMARY | 2023-10-11 12:42 | XMS_ITS | Encounter Summary ---
Author Name Unknown Organization [facility] Address [address] [place] [address] Care Team Providers Care Electrical Automation Engineer Name Role Phone Unavailable Primary Care Provider Unavailabl e Encounter Details Date Type Department Care Team (Late st Contact Info) Description 11/16/2022 Clinical Communication Department of Radiation Oncology in [place], [place] [address] [place] [address] Magaly Vallejo M.D. [address] [place] [address] Social History Tobacco Use Types Packs/Day Years [...] Answer Date Recorded PHQ-2 Score 0 09/03/2022 [facility] of Occupat ional [facility] - Occupational Stress Questionnaire Answer [...] Sex Assigned at Male 07/30/2022 11:39 AM PARACHUTE CUSHION INSTALLER Gender Identity Male 07/30/2022 11:39 AM PARACHUTE CUSHION INSTALLER Sexual Orientation Straight 07/30/2022 11 :39 AM PARACHUTE CUSHION INSTALLER documented as of this encounter Miscellaneous Notes * Telephone Encounter - Sapna Mckeon R.N. - 11/16/2022 3:56 PM CST Information Discussed Patient called in asking if he needs his Compazine prescription refilled. He notes that he is not experiencing nausea or vomiting. He reports feeling full fast and then this causing lack of appetite.He is working on Ensures through out the day and softer foods. PLAN We discussed adding Benecalorie packets to moist/wet foods to add in calories. To take in small more frequent snack and meals. I recommended slowly working on increasing daily caloric intake. Patientdeclined Gaming Department Head visit. He is flying to [place] tomorrow. Dr. Vallejo refilled Compazine prescription in case nausea develops. Radiation Oncology [place] can be contacted at anytime for any questions or concerns. Disposition/Recommendation: self-care - appropriate at this time, patient encouraged to call back with questions Information/Education: patient/caller able to teach back Caller agreeable to plan of care: yes The following references were used: provider Dr. Vallejo CHUTE CUSHION INSTALLER * Telephone Encounter - Benito Perez - 11/16/2022 12:38 PM CST Caller: Nehemias Pratt Is there a valid authorization to speak with caller? Yes Primary Radiation Oncologist: Dr. Vallejo Reason for call: Deepti was calling in regards to a prescription refill. Nehemias is out of his nausea medication and had went to his chemo doctor at [facility] to get a refill. They told him that since he is no longer getting chemo that he must come to us since we are still giving care. They are also leavingon vacation tomorrow so it is an urgent need. She specified that it was the long medication that sta rted with P, so I presume it's the prochlorperazine. Phone number: [phone] Is it okay to leave a voicemail on answering machine with test results? Yes Pharmacy (if medication related): [id number] [address] [facility] [address] [address] [facility] [id number] [place] [id number] [id number] - [facility] [address] [facility] [address] [address] [facility] [phone] CHUTE CUSHION INSTALLER documented in this encounter Plan of Treatment Not on file documented as of this encounter Visit Diagnoses Not on filedocumented in this encounter
--- OUTSIDE RECORDS SUMMARY | 2023-10-11 12:42 | XMS_ITS | Encounter Summary ---
Author Name Unknown Organization [facility] Address [address] [place] [address] Care Team Providers Care Windows Desktop Engineer Name Role Phone Unavailable Primary Care Provider Unavailabl e Encounter Details Date Type Department Care Team (Late st Contact Info) Description 11/02/2022 Orders Only Department of Radiation Oncology in [place], [place] [address] [place] [phone] Sapna Mckeon, RYassineNYassine [address] [place] [address] Social History Tobacco Use Types Packs/Day Years [...] often do you attend chur ch or congregational services? More than 4 times per year 07/30/2022 Do you belong to any clubs o r organizations such as evangelical groups, unions, fraternal or athletic groups, or [...] place to sleep or slept in a mcfp (including now)? No 07/30/2022 Nutrition Answer Date [...] Sex Assigned at Male 07/30/2022 11:39 AM TELEGRAPH OFFICE MANAGER Gender Identity Male 07/30/2022 11:39 AM TELEGRAPH OFFICE MANAGER Sexual Orientation Straight 07/30/2022 11 :39 AM TELEGRAPH OFFICE MANAGER documented as of this encounter Plan of Treatment Not on file documented as of this encounter Visit Diagnoses Not on filedocumented in this encounter
--- OUTSIDE RECORDS SUMMARY | 2023-10-11 12:43 | XMS_ITS | Encounter Summary ---
Author Name Unknown Organization [facility] Address [address] [place] [address] Care Team Providers Care Accounts Payable Assistant Name Role Phone Unavailable Primary Care Provider Unavailabl e Reason for Referral * Outpatient (Routine) - Authorized Specialty Diagnoses / Procedures Referred By Elizabeth pat Referred To Contact Radiation Oncology Magaly Vallejo M.D. [address] [place] [address] [facility] Region Referral ID Status Reason Start Date Expiration Date V isits Requested Visits Authorized [id number] Authorized 08/08/2022 08/07/2025 10 10 RN Reason for Visit * Outpatient (Routine) - Authorized Specialty Diagnoses / Procedures Referred By Elizabeth pat Referred To Contact Radiation Oncology Magaly Vallejo M.D. [address] [place] [address] [facility] Region Referral ID Status Reason Start Date Expiration Date V isits Requested Visits Authorized [id number] Authorized 08/08/2022 08/07/2025 10 10 Encounter Details Date Type Department Care Team (Latest Contact Info) Description 10/16/2022 3:45 PM OR RN - 10/16/2022 11:59 PM OR RN Hospital Encounter Department of Radiation Oncology in [place], [place] [address] [place] [address] Magaly Vallejo M.D. [address] [place] [phone] Sapna Mckeon R.N. [address] [place] [address] Malignant Neoplasm Of Tonsil (HCC) (Primary Dx); [...] week 07/30/2022 How often do you attend [facility] or jew services? More than 4 times per year 07/30/2022 Do you belong to any clubs o r organizations such as advent groups, unions, fraternal or athletic groups, or [...] Date Recorded PHQ-2 Score 0 09/03/2022 [facility] - Occupational Stress Questionnaire Answer Date Recorded [...] Sex Assigned at Male 07/30/2022 11:39 AM OR RN Gender Identity Male 07/30/2022 11:39 AM OR RN Sexual Orientation Straight 07/30/2022 11 :39 AM OR RN documented as of this encounter Last Filed Vital Signs Vital Sign Reading Time Taken Comments Blood Pressure - - Pulse - - Temperature - - Respiratory Rate - - Oxygen Saturation - - Inhaled Oxygen Concentration - - Weight 81.5 kg (179 lb 10.8 oz) 10/16/2022 4:22 PM OR RN Height - - Body Mass Index 28.13 09/13/2022 4:16 PM OR RN documented in this encounter Medications at Time [...] bedtime. Swish and spit. 240 mL 2 10/09/2022 10/19/2022 LORazepam (ATIVAN) 0.5 mg tablet Take 0.5 mg by mouth daily. 0 08/20/2022 12/26/2022 oxyCODONE (ROXICODONE) 5 mg immediate release tabletIndications:Acut e Pain Exception Take 1 tablet (5 mg total) by mouth every 4 (four) hours as needed for pain Indication: Acute Pain Exception. 30 tablet 0 10/15/2022 10/19/2022 prochlorperazine (COMPAZINE) 10 mg tablet Take 10 mg by mouth daily. 0 08/20/2022 11/16/2022 documented as of this encounter Progress Notes * Sapna Mckeon R.N. - 10/16/2022 4:15 PM CST SUBJECTIVE REASON FOR VISIT Evaluation for side effects while receiving radiation treatment Nurse visit HISTORY OF PRESENT ILLNESS Nehemias Pratt is a 62 y.o. 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 He is getting weekly Cisplatin at [facility]. Treatment Course: 1xOpx Plan ID Fractions Dose / Fraction (cGy) Dose Treated (cGy) Dose Planned (cGy) First Treatment Last Treatment Elapsed Days F1Opx 35 / 35 200 7000 7000 08/27/2022 10/16/2022 50 Course Summary 08/27/2022 10/16/2022 50 Patient reports that he is taking in 2 Ensures a day and 60 oz of water a day. He did a water soak on his neck last night. He is applying Aquaphor to treatment field area. He has not started white vinegar soaks or Xeroform dressing changes. He received IV fluids yesterday and he will be received IVfluids again tomorrow. OBJECTIVE Wt 81.5 kg BMI 28.13 kg/m?? WEIGHTS August 28, 2022: 95.7 kg September 04, 2022: 94.4 kg September 11, 2022: 96.5 kg September 14, 2022: 95.7 kg October 16, 2022: 81.5 kg PHYSICAL EXAM General: Alert and oriented in no apparent distress. Skin: Brisk erythema and dryness to neck and chest. Moist desquamation to left neck region. ASSESSMENT / PLAN Radha Pedroza PA-C refilled patient's Oxycodone prescription yesterday. [facility] I will order Tool Polishing Machine Operator visit for this as his weight continues to decline. Dr. Vallejo will see patient in management visit at the end of the week. I reviewed skin care recommendations again today. I have reviewed Moist Skin Reaction [id number] pamphlet and provided patient with skin care samples. Signed by: Sapna Mckeon R.N. 10/16/2022 4:27 PM OR RN RN documented in this encounter Plan of Treatment Scheduled Referrals Name Type Priority Associated Diagnoses Order Schedule Radiation Oncology nurse visit (clinic) Outpatient Referral Routine Once for 1 Occurrences starting 10/16/2022 until 10/16/2022 documented as of this encounter Visit Diagnoses Diagnosis Malignant Neoplasm Of Tonsil (HCC)- Primary Secondary Malignant Neoplasm Lymph Node Neck (HCC) documented in this encounter
--- OUTSIDE RECORDS SUMMARY | 2023-10-11 12:43 | XMS_ITS | Encounter Summary ---
Author Name Unknown Organization [facility] Address [address] [place] [address] Care Team Providers Care Livestock Farmers Name Role Phone Unavailable Primary Care Provider Unavailabl e Encounter Details Date Type Department Care Team (Late st Contact Info) Description 10/15/2022 Clinical Communication Department of Radiation Oncology in [place], [place] [address] [place] [phone] Radha Pedroza P.A.-C., M.S. [address] [place] [address] Social History Tobacco Use Types Packs/Day Years [...] often do you attend chur ch or cheondoism services? More than 4 times per year 07/30/2022 Do you belong to any clubs o r organizations such as hinduism groups, unions, fraternal or athletic groups, or [...] Answer Date Recorded PHQ-2 Score 0 09/03/2022 [facility] Occupat ional Health - [...] Sex Assigned at Male 07/30/2022 11:39 AM COMMERCIAL GREEN BUILDING ARCHITECT Gender Identity Male 07/30/2022 11:39 AM COMMERCIAL GREEN BUILDING ARCHITECT Sexual Orientation Straight 07/30/2022 11 :39 AM COMMERCIAL GREEN BUILDING ARCHITECT documented as of this encounter Miscellaneous Notes * Telephone Encounter - Radha Pedroza P.A.-C., M.S. - 10/15/2022 5:18 PM COMMERCIAL GREEN BUILDING ARCHITECT I received a phone call from the patient as the on-call provider. He is requesting a refill of oxycodone tonight. He reports having 1 tablet remaining. He is taking on average 4 tablets per day, primarily prior to meals. He reports that the pain is in his throat, rated 4/10 in severity. He reports that his pain is currently managed with taking oxycodone. He is getting most of his nutrition in liquid form due to the pain. He was last prescribed oxycodone 30 tablets on October 09, 2022, so a refill now is appropriate based on his reported usage of the medication. I will send in a prescription refill for him. He is scheduled for his last radiation treatment and also a nurse visit tomorrow. Hispain and skin can be evaluated in more detail at that visit. He verbally expressed his understanding of the plan. Radha Pedroza P.A.-C. ERCIAL GREEN BUILDING ARCHITECT documented in this encounter Plan of Treatment Not on file documented as of this encounter Visit Diagnoses Not on filedocumented in this encounter
--- OUTSIDE RECORDS SUMMARY | 2023-10-11 12:43 | XMS_ITS | Encounter Summary ---
Author Name Unknown Organization [facility] Address [address] [place] [address] Care Team Providers Care Lathing Supervisor Name Role Phone Unavailable Primary Care Provider Unavailabl e Reason for Visit * Radiation Therapy (Routine) - Closed Specialty Diagnoses / Procedures Referred By Elizabeth pat Referred To Contact Diagnoses Malignant Neoplasm Of Tonsil (HCC) Procedures Prior Auth Rad Tx MO IMRT COMPLEX Magaly Vallejo M.D. [address] [place] [address] [facility] Referral ID Status Reason Start Date Expiration Date Visits Re quested Visits Authorized [id number] Closed 08/20/2022 08/08/2023 35 35 Encounter Details Date Type Department Care Team (Latest Contact Info) Description 10/15/2022 3:44 PM CARAVAN PARK AND CAMPING GROUND MANAGER - 10/15/2022 11:59 PM CARAVAN PARK AND CAMPING GROUND MANAGER Hospital Encounter Department of Radiation Oncology in [place], [place] [address] [place] [phone] Magaly Vallejo M.D. [address] [place] [phone] Discharge Disposition: Home or Self Care Social [...] often do you attend chur ch or faith services? More than 4 times per year [...] Answer Date Recorded PHQ-2 Score 0 09/03/2022 [facility] of Occupat ional Health - Occupational Stress [...] place to sleep or slept in a half-way (including now)? No 07/30/2022 Nutrition Answer Date [...] Sex Assigned at Male 07/30/2022 11:39 AM CARAVAN PARK AND CAMPING GROUND MANAGER Gender Identity Male 07/30/2022 11:39 AM CARAVAN PARK AND CAMPING GROUND MANAGER Sexual Orientation Straight 07/30/2022 11 :39 AM CARAVAN PARK AND CAMPING GROUND MANAGER documented as of this encounter Medications at [...] 08/20/2022 11/16/2022 documented as of this encounter Plan of Treatment Not on file documented as of this encounter Visit Diagnoses Not on filedocumented in this encounter
--- OUTSIDE RECORDS SUMMARY | 2023-10-11 12:43 | XMS_ITS | Encounter Summary ---
Author Name Unknown Organization [facility] Address [address] [place] [address] Care Team Providers Care Underwear Welter Name Role Phone Unavailable Primary Care Provider Unavailabl e Reason for Referral * Outpatient (Routine) - Closed Specialty Diagnoses / Procedures Referred By Elizabeth pat Referred To Contact Radiation Oncology Magaly Vallejo M.D. [address] [place] [address] [facility] Region Referral ID Status Reason Start Date Expiration Date Visits Re quested Visits Authorized [id number] Closed 10/11/2022 10/10/2025 1 1 GER MARKETING COMMUNICATIONS * Radiation Therapy (Routine) - Closed Specialty Diagnoses / Procedures Referred By Elizabeth pat Referred To Contact Diagnoses Malignant Neoplasm Of Tonsil (HCC) Procedures Management Visit Magaly Vallejo M.D. [address] [place] [address] [facility] Region Referral ID Status Reason Start Date Expiration Date Visits Re quested Visits Authorized [id number] Closed 08/08/2022 08/08/2023 10 10 GER MARKETING COMMUNICATIONS Reason for Visit * Radiation Therapy (Routine) - Closed Specialty Diagnoses / Procedures Referred By Elizabeth pat Referred To Contact Diagnoses Malignant Neoplasm Of Tonsil (HCC) Procedures Management Visit Magaly Vallejo M.D. [address] [place] [address] [facility] Region Referral ID Status Reason Start Date Expiration Date Visits Re quested Visits Authorized [id number] Closed 08/08/2022 08/08/2023 10 10 Encounter Details Date Type Department Care Team (Latest Contact Info) Description 10/10/2022 3:24 PM MANAGER MARKETING COMMUNICATIONS - 10/11/2022 2:35 PM MANAGER MARKETING COMMUNICATIONS Hospital Encounter Department of Radiation Oncology in [place], [place] [address] [place] [phone] Magaly Vallejo M.D. [address] [place] [phone] Malignant Neoplasm Of Tonsil (HCC) Social History Tobacco Use Types Packs/Day [...] often do you attend chur ch or mandaen services? More than 4 times per year 07/30/2022 Do you belong to any clubs o r organizations such as temple groups, unions, fraternal or athletic groups, or [...] Answer Date Recorded PHQ-2 Score 0 09/03/2022 [facility] Occupat ional [facility] - Occupational [...] Assigned at Male 07/30/2022 11:39 AM MANAGER MARKETING COMMUNICATIONS Gender Identity Male 07/30/2022 11:39 AM MANAGER MARKETING COMMUNICATIONS Sexual Orientation Straight 07/30/2022 11 :39 AM MANAGER MARKETING COMMUNICATIONS documented as of this encounter Last Filed Vital Signs Vital Sign Reading Time Taken Comments Blood Pressure 112/69 10/10/2022 3:32 PM MANAGER MARKETING COMMUNICATIONS Pulse 102 10/10/2022 3:32 PM MANAGER MARKETING COMMUNICATIONS Temperature 36.8 ??C (98.2 ??F) 10/10/2022 3:32 PM CS T Respiratory Rate - - Oxygen Saturation - - Inhaled Oxygen Concentration - - Weight 84.8 kg (186 lb 15.2 oz) 10/10/2022 3:32 PM MANAGER MARKETING COMMUNICATIONS Height - - Body Mass Index 29.27 09/13/2022 4:16 PM MANAGER MARKETING COMMUNICATIONS documented in this encounter Medications at Time [...] immediate release tabletIndications:Acut e Pain Exception Take 1-2 tablets (5-10 mg total) by mouth every 6 (six) hours as needed for pain Indication: Acute Pain Exception. 30 tablet 0 10/09/2022 10/15/2022 prochlorperazine (COMPAZINE) 10 mg tablet Take 10 mg by mouth daily. 0 08/20/2022 11/16/2022 documented as of this encounter Progress Notes * Magaly Vallejo M.D. - 10/10/2022 3:45 PM CST ATTESTATION FOR MANAGEMENT VISIT I saw and evaluated the patient and participated in the tyler portions of the service as noted above.I reviewed the documentation of Ms. Melinda Dave RN and agree with the findings and plan. Thepatient appears well on exam. We will continue with radiation as planned and we anticipate that he will complete early next week. We anticipate that Nehemias Pratt will complete radiation treatment as planned without interruptions. The course of treatment was tolerated well. The patient experienced toxicities of grade 2 dry mouth, dysgeusia, esophagitis, weight loss, dermatitis, pain, grade 1 nausea, fatigue, dehydration, during radiation treatment. Follow-up will be with me in 4 weeks or sooner if he needs us. He will have a nurse visit on Saturday, his last day of radiation. We discussed reimaging with a PET/CT and visits in [place] and with me in 3 months. We will orderthose in 1 month. His questions were answered; he was comfortable with this plan. Magaly Vallejo M.D., 10/11/2022 SUBJECTIVE REASON FOR VISIT Evaluation for side effects while receiving radiation treatment for 1. Malignant Neoplasm Of Tonsil (HCC) SUPERVISED BY: Dr. Vallejo HISTORY OF PRESENT ILLNESS Nehemias Pratt is a 62 y.o. 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 He is getting weekly Cisplatin at [facility]. Treatment Course: 1xOpx Plan ID Fractions Dose / Fraction (cGy) Dose Treated (cGy) Dose Planned (cGy) First Treatment Last Treatment Elapsed Days F1Opx 200 6200 7000 08/27/2022 10/10/2022 44 Course Summary 08/27/2022 10/10/2022 44 The patient was seen and examined today with Dr. Vallejo. Patient patient rates his sore throat pain at a 3 out of 10. He alternates 5 mg of Oxycodone 3 times daily with 1000 mg of Extra Strength Tylenol twice a day. He also takes Magic Mouthwash 4 times a day. He manages moderate dry mouth with Biotene, humidifier and frequent sips of water. His diet consists of Milk mixed with muscle powder, cheese pasta, fruit cups, liquid IV mix and [place] instant breakfast a day. He drinks 64 oz of water per day. He used Senokot-S to mange constipation with narcotic use. He is stretching his jaw out. He is applying Aquaphor or lotion to the treatment field area. He denies fevers, chills or shortness of breath. PATIENT REPORTED SYMPTOM SCREEN FATIGUE (Scale: 0 = no fatigue; 10 = worst fatigue you can imagine): 2 PAIN (Scale: 0 = no pain; 10 = worst pain you can imagine): 3 OVERALL QUALITY OF LIFE (Scale: 0 = as bad as can be; 10 = as good as can be): 8 OBJECTIVE BP 112/69 (BP Location: Right arm, Patient Position: Sitting, Cuff Size: Regular) Pulse 102 Temp 36.8 ??C (Temporal) Wt 84.8 kg BMI 29.27 kg/m?? WEIGHTS August 28, 2022: 95.7 kg September 04, 2022: 94.4 kg September 11, 2022: 96.5 kg September 14, 2022: 95.7 kg September 20, 2022: 93.6 kg September 26, 2022: 91.45 kg (4.24 kg weight loss since starting treatment) October 03, 2022: 87.4 kg (8.3 kg weight loss since starting treatment) October 09, 2022: 84.8 kg (10.9 kg weight loss since starting treatment) PHYSICAL EXAM General: Alert and oriented in no apparent distress. HEENT: Yellow exudate noted on uvula and posterior oropharynx. Thrush is no longer present with in the oral cavity. Skin: Moderate dryness and moderate erythema to neck and chest with minimal hyperpigmentation to treatment field area. 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 Patient's weight has now decreased by 10.9 kg since starting treatment. This is a > 10% reduction in weight since starting treatment. Potential need for feeding tube placement addressed with patient if weight loss continues. The patient does not want a feeding and verbalized that he will try to increase caloric intake. The patient will meet with the dietitian this . Patient instructed to increase lotion application to 2-3 times daily and Aquaphor application 2 times daily. He has completed his weekly Cisplatin chemotherapy treatments at [facility]. We will seen him next week for a skin check on October 16, 2022. Patient will follow up with Dr. Vallejo in one month. Patient will continue with treatment as planned. He can contact our care team with any questions or concerns. Toxicities reviewed with Dr. Vallejo. Signed by: Melinda Dave R.N. 10/11/2022 12:02 PM MANAGER MARKETING COMMUNICATIONS GER MARKETING COMMUNICATIONS documented in this encounter Plan of Treatment Scheduled Orders Name Type Priority Associated Diagnoses Orde r Schedule Management Visit Radiation Oncology Routine Malignant Neoplasm Of Tonsil (HCC) Once for 1 Occurrences starting 10/10/2022 until 10/10/2022 Scheduled Referrals Name Type Priority Associated Diagnoses Orde r Schedule Radiation Oncology office visit (clinic) Outpatient Referral Routine Expected: 11/11/2022 (Approximate), Expires: 10/11/2023 documented as of this encounter Visit Diagnoses Diagnosis Malignant Neoplasm Of Tonsil (HCC) documented in this encounter
--- OUTSIDE RECORDS SUMMARY | 2023-10-11 12:43 | XMS_ITS | Encounter Summary ---
Author Name Unknown Organization [facility] Address [address] [place] [address] Care Team Providers Care Table Maker Name Role Phone Unavailable Primary Care Provider Unavailabl e Encounter Details Date Type Department Care Team (Late st Contact Info) Description 09/12/2022 Clinical Communication Department of Radiation Oncology in [place], [place] [address] [place] [phone] Magaly Vallejo M.D. [address] [place] [address] Social History Tobacco Use Types Packs/Day Years [...] any clubs o r organizations such as catholic groups, unions, fraternal or athletic groups, or [...] Answer Date Recorded PHQ-2 Score 0 09/03/2022 [facility] Occupat ional Health - Occupational [...] Sex Assigned at Male 07/30/2022 11:39 AM COMBINER OPERATOR Gender Identity Male 07/30/2022 11:39 AM COMBINER OPERATOR Sexual Orientation Straight 07/30/2022 11 :39 AM COMBINER OPERATOR documented as of this encounter Miscellaneous Notes * Telephone Encounter - Anisha Perez - 09/12/2022 1:39 PM CST Caller: [employer] Is there a valid authorization to speak with caller? Yes and n/a Primary Radiation Oncologist: Dr. Vallejo Reason for call: Patient's insurance company is calling about a recent disability claim and would like a call back to get some more information. Their number is [phone] and the patient's claim number is [id number] Phone number: [phone] Is it okay to leave a voicemail on answering machine with test results? Yes Pharmacy (if medication related): N/A Anisha Perez INER OPERATOR documented in this encounter Plan of Treatment Not on file documented as of this encounter Visit Diagnoses Not on filedocumented in this encounter
--- OUTSIDE RECORDS SUMMARY | 2023-10-11 12:43 | XMS_ITS | Encounter Summary ---
Author Name Unknown Organization [facility] Address [address] [place] [address] Care Team Providers Care Engineering Inspector Name Role Phone Unavailable Primary Care Provider Unavailabl e Encounter Details Date Type Department Care Team (Latest Contact Info) Description 10/16/2022 3:45 PM TOLL BRIDGE ATTENDANT - 10/16/2022 11:59 PM TOLL BRIDGE ATTENDANT Hospital Encounter Department of Radiation Oncology in [place], [place] [address] [place] [phone] Magaly Vallejo M.D. [address] [place] [address] Discharge Disposition: Home or Self Care Social [...] often do you attend chur ch or latter-day services? More than 4 times per year 07/30/2022 Do you belong to any clubs o r organizations such as pentecostalism groups, unions, fraternal or athletic groups, or [...] Answer Date Recorded PHQ-2 Score 0 09/03/2022 [facility] [place] [facility] Occupat ional Health - Occupational Stress [...] place to sleep or slept in a detention (including now)? No 07/30/2022 Nutrition Answer Date [...] Sex Assigned at Male 07/30/2022 11:39 AM TOLL BRIDGE ATTENDANT Gender Identity Male 07/30/2022 11:39 AM TOLL BRIDGE ATTENDANT Sexual Orientation Straight 07/30/2022 11 :39 AM TOLL BRIDGE ATTENDANT documented as of this encounter Medications at [...]
--- OUTSIDE RECORDS SUMMARY | 2023-10-11 12:43 | XMS_ITS | Encounter Summary ---
Author Name Unknown Organization [facility] Address [address] [place] [address] Care Team Providers Care Manager Applied Name Role Phone Unavailable Primary Care Provider Unavailabl e Reason for Referral * Outpatient (Routine) - Authorized Specialty Diagnoses / Procedures Referred By Elizabeth pat Referred To Contact Radiation Oncology Magaly Vallejo M.D. [address] [place] [address] [facility] Region Referral ID Status Reason Start Date Expiration Date V isits Requested Visits Authorized [id number] Authorized 08/08/2022 08/07/2025 10 10 F COMMUNICATIONS OFFICER Reason for Visit * Outpatient (Routine) - Authorized Specialty Diagnoses / Procedures Referred By Elizabeth pat Referred To Contact Radiation Oncology Magaly Vallejo M.D. [address] [place] [address] [facility] Region Referral ID Status Reason Start Date Expiration Date V isits Requested Visits Authorized [id number] Authorized 08/08/2022 08/07/2025 10 10 Encounter Details Date Type Department Care Team (Latest Contact Info) Description 10/19/2022 12:00 PM CHIEF COMMUNICATIONS OFFICER - 10/19/2022 4:18 PM CHIEF COMMUNICATIONS OFFICER Hospital Encounter Department of Radiation Oncology in [place], [place] [address] [place] [address] Magaly Vallejo M.D. [address] [place] [phone] Sapna Mckeon R.N. [address] [place] [address] Malignant Neoplasm Of Tonsil (HCC) (Primary Dx) [...] week 07/30/2022 How often do you attend [facility] or jew services? More than 4 times per year 07/30/2022 Do you belong to any clubs o r organizations such as restorationist groups, unions, fraternal or athletic groups, or [...] Answer Date Recorded PHQ-2 Score 0 09/03/2022 [facility] - Occupational Stress Questionnaire Answer [...] Sex Assigned at Male 07/30/2022 11:39 AM CHIEF COMMUNICATIONS OFFICER Gender Identity Male 07/30/2022 11:39 AM CHIEF COMMUNICATIONS OFFICER Sexual Orientation Straight 07/30/2022 11 :39 AM CHIEF COMMUNICATIONS OFFICER documented as of this encounter Medications at [...] Indication: Acute Pain Exception. 30 tablet 0 10/19/2022 10/26/2022 prochlorperazine (COMPAZINE) 10 mg tablet Take 10 mg by mouth daily. 0 08/20/2022 11/16/2022 documented as of this encounter Progress Notes * Sapna Mckeon R.N. - 10/19/2022 12:00 PM CST SUBJECTIVE REASON FOR VISIT Evaluation for side effects while receiving radiation treatment Nurse visit HISTORY OF PRESENT ILLNESS Nehemias Pratt is a 62 y.o. 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 He is getting weekly Cisplatin at [facility]. Treatment Course: 1xOpx Plan ID Fractions Dose / Fraction (cGy) Dose Treated (cGy) Dose Planned (cGy) First Treatment Last Treatment Elapsed Days F1Opx 35 / 35 200 7000 7000 08/27/2022 10/16/2022 50 Course Summary 08/27/2022 10/16/2022 50 Patient reports that he is taking 2 tablets of Oxycodone in the morning and 1-2 tablets of Oxycodone in the afternoon. He then takes Tylenol at bedtime. He completes Magic Mouthwash twice a day. He is taking in 1/2 of an Ensure and 2 Instant [place] Breakfasts a day along with water. He is completing water soaks to treatment field area and then applying Aquaphor once a day and Aloe Vera gel once a day. He has not been completing Xeroform dressing changes. He is requesting refill for Magic Mouthwash. He does not think he picked up his Oxycodone refill prescription that was sent in this past Saturday. OBJECTIVE There were no vitals taken for this visit. WEIGHTS August 28, 2022: 95.7 kg September 04, 2022: 94.4 kg September 11, 2022: 96.5 kg September 14, 2022: 95.7 kg October 16, 2022: 81.5 kg October 19, 2022: 81.8 kg PHYSICAL EXAM General: Alert and oriented in no apparent distress. ENT: Mucositis noted to uvula and soft palate. No signs of infection noted with in the oral cavity. Skin: Brisk erythema and dryness to neck and chest. Moist desquamation to left neck region. ASSESSMENT / PLAN Patient's weight has not dropped since Saturday. Patient's weight has declined significantly by 13.9kg since starting treatment. Patient declined Fire Manager visit yesterday. I had an extensive conversation with patient today regarding importance of nutrition as well as ways to increase calories. We discussed shakes at [employer] as an option. Increasing amount of Instant Breakfast Carnations patient takes in. We also discussed homemade smoothies and adding honey and ice cream to increase caloric intake. Patient is to pickle maker Oxycodone refill that was sent in for him on Saturday. We will send in prescription for Magic Mouthwash today. Patient can trial liquid Tylenol to help with current gagging with Tylenol tablets. I reviewed Aquaphor is to be applied to skin 4 times a day. I encouraged patient to apply Xeroform to areas of opened skin twice a day. He received IV fluids at [facility] earlier today. Radiation Oncology Edwards can be contacted at anytime for any questions or concerns. Signed by: Sapna Mckeon R.N. 10/19/2022 12:53 PM CHIEF COMMUNICATIONS OFFICER F COMMUNICATIONS OFFICER documented in this encounter Plan of Treatment Scheduled Referrals Name Type Priority Associated Diagnoses Order Schedule Radiation Oncology nurse visit (clinic) Outpatient Referral Routine Once for 1 Occurrences starting 10/19/2022 until 10/19/2022 documented as of this encounter Visit Diagnoses Diagnosis Malignant Neoplasm Of Tonsil (HCC)- Primary documented in this encounter
--- OUTSIDE RECORDS SUMMARY | 2023-10-11 12:43 | XMS_ITS | Encounter Summary ---
Author Name Unknown Organization [facility] Address [address] [place] [address] Care Team Providers Care Dough Machine Operator Name Role Phone Unavailable Primary Care Provider Unavailabl e Reason for Visit * Reason Onset Date Comments Follow-up 10/19/2022 Encounter Details Date Type Department Care Team ([facility] st Contact Info) Description 10/19/2022 Clinical Communication Department of Radiation Oncology in [place], [place] [address] [place] [address] Magaly Vallejo M.D. [address] [place] [address] Follow-up Social History Tobacco Use Types Packs/Day [...] any clubs o r organizations such as sabianist groups, unions, fraternal or athletic groups, or [...] Answer Date Recorded PHQ-2 Score 0 09/03/2022 [facility] [place] [facility] of Occupat ional Health - [...] place to sleep or slept in a correction (including now)? No 07/30/2022 Nutrition Answer Date [...] Sex Assigned at Male 07/30/2022 11:39 AM SITE PLANNER Gender Identity Male 07/30/2022 11:39 AM SITE PLANNER Sexual Orientation Straight 07/30/2022 11 :39 AM SITE PLANNER documented as of this encounter Miscellaneous Notes * Telephone Encounter - Sapna Mckeon R.N. - 10/19/2022 3:16 PM CST Information Discussed I called patient back just now and he notes that he forgot he did have a few tablets of Oxycodone left in his work lunch pack. PLAN I told patient that prescription refill for Oxycodone and Magic Mouthwash [facility] in [place], [place]. Patient does have our half section ironer phone number in case acute concerns arise over the weekend. Disposition/Recommendation: self-care - appropriate at this time, patient encouraged to call back with questions Information/Education: patient/caller able to teach back Caller agreeable to plan of care: yes The following references were used: provider Dr. Vallejo PLANNER * Telephone Encounter - Benito Perez - 10/19/2022 9:50 AM CST Caller: [facility] in regards to Nehemias Is there a valid authorization to speak with caller? Yes Primary Radiation Oncologist: Dr. Vallejo Reason for call: Just received a call from [facility], Nehemias is in today receiving 2L of fluids,and they said he has not been intaking many calories. We had a nutrition order scheduled for him on but when informed of this he refused coming for it. He may need a call just convincing him of coming next week. He is also entirely out of oxycodone and nearly out of magic mouthwash and will need a refill of both. Phone number: [phone] Is it okay to leave a voicemail on answering machine with test results? Yes Pharmacy (if medication related): [id number] [address] [facility] [address] [facility] [id number] [place] [phone] [id number] [address] [facility] [address] [address] [facility] [phone] PLANNER documented in this encounter Plan of Treatment Not on file documented as of this encounter Visit Diagnoses Not on filedocumented in this encounter
--- OUTSIDE RECORDS SUMMARY | 2023-10-11 12:43 | XMS_ITS | Encounter Summary ---
Author Name Unknown Organization [facility] Address [address] [place] [address] Care Team Providers Care Body Mechanic Name Role Phone Unavailable Primary Care Provider Unavailabl e Reason for Referral * Outpatient (Routine) - Canceled Specialty Diagnoses / Procedures Referred By Elizabeth pat Referred To Contact Nutrition Diagnoses Malignant Neoplasm Of Tonsil (HCC) Magaly Vallejo M.D. [address] [place] [address] [facility] Referral ID Status Reason Start Date Expiration Date V isits Requested Visits Authorized [id number] Canceled 08/08/2022 08/08/2023 6 6 ING METER INSTALLER Reason for Visit * Outpatient (Routine) - Canceled Specialty Diagnoses / Procedures Referred By Elizabeth pat Referred To Contact Nutrition Diagnoses Malignant Neoplasm Of Tonsil (HCC) Magaly Vallejo M.D. [address] [place] [address] [facility] Referral ID Status Reason Start Date Expiration Date V isits Requested Visits Authorized [id number] Canceled 08/08/2022 08/08/2023 6 6 Encounter Details Date Type Department Care Team (Latest Contact Info) Description 10/11/2022 3:30 PM PARKING METER INSTALLER - 10/11/2022 3:49 PM PARKING METER INSTALLER Hospital Encounter Department of Radiation Oncology in [place], [place] [address] [place] [phone] Magaly Vallejo M.D. [address] [place] [address] Luisa Antoine, RDN [address] [place] [address] Malignant Neoplasm Of Tonsil (HCC) Discharge Disposition: Home or Self Care [...] How often do you attend chur or christianity services? More than 4 times per year 07/30/2022 Do you belong to any clubs o r organizations such as cheondoism groups, unions, fraternal or athletic groups, or [...] Date Recorded PHQ-2 Score 0 09/03/2022 [facility] - Occupational Stress Questionnaire Answer Date [...] place to sleep or slept in a mcc (including now)? No 07/30/2022 Nutrition Answer Date [...] Sex Assigned at Male 07/30/2022 11:39 AM PARKING METER INSTALLER Gender Identity Male 07/30/2022 11:39 AM PARKING METER INSTALLER Sexual Orientation Straight 07/30/2022 11 :39 AM PARKING METER INSTALLER documented as of this encounter Medications at [...] as of this encounter Progress Notes * Luisa Antoine, ADRIENNE - 10/11/2022 3:30 PM CST CHIEF COMPLAINT/REASON FOR VISIT Malignant Neoplasm Of Tonsil (HCC) [C09.9] - Primary HISTORY OF PRESENT ILLNESS Nehemias Pratt is a 62 y.o. 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 Radiotherapy concurrent with chemotherapy initiated August 27, 2022; anticipateddate of completion October 16, 2021. PAST MEDICAL HISTORY 1. Anxiety Generalized Disorder 2. Benign Prostatic Hyperplasia Localized 3. Dysfunctional Erectile 4. Gastroesophageal Reflux Disease 5. Hyperlipidemia 6. Hypothyroidism 7. Vertigo Benign Paroxysmal Positional Bilateral Met with patient. ASSESSMENT Relevant Social and Family History Mr. Pratt lives with his spouse and his 3 youngest children in their [place] home. He reports having a lot of support from his family. Nutrition Focused Physical Findings Mouth/esophagus/Throat: slight throat pain, thrush, experiencing ageusia and dry mouth Bowels: He is using senna-s. Bowels are currently normal. Nausea/vomiting: slight nausea a couple of times. Reports anti-nausea medication is helping. Food/Nutrition Related History He reports eating less solid foods. Breakfast is coffee and cappuccino mix with 1 scoop of muscle milk protein (16 grams protein). He had an ensure plus at work today (16 grams protein). He also has 1-2 fruit cups at work. In the afternoon he has carnation instant breakfast with 1 scoop muscle milk(29 grams protein total). Last night for supper he had some noodles. Last evening he had ice cream with rice and fruit. He also had coffee with muscle milk protein powder (16 grams protein). Weight History Date: 10/11/22: Weight: 84.0 kg Height 170.2 cm - stated Body mass index is 28.9 kg/m??. 10/04/22: 88.8 kg 09/27/22: 90.5 kg 09/20/22: 93.6 kg 09/13/22: 96.2 kg 09/07/22: 94.4 kg 09/04/22: 94.4 kg 08/28/22: 95.7 kg - start of treatment 08/13/22: 95.6 kg Estimation of Nutritional Needs Weight Used for Equation Calculations: 96.5 kg Date: 09/11/22 Total Calorie Needs: 8455-5114 (HB + 20%) Estimated Protein Needs: 95-115 grams per day (1-1.2 g/kg) Estimated Fluid Needs: 2880 ml per day (30 ml/kg) NUTRITION DIAGNOSIS Unintentional weight loss related to head/neck cancer with chemoradiation as evidenced by 11.7 kg/12.2% weight loss in 6 weeks. Food- and nutrition-related knowledge deficit related to cancer with chemoradiation as evidenced byneed for nutrition education to maintain weight and nutrition status during treatment Nutrition Diagnosis Reassessment: Ongoing Nutrition Prescription/Recommendation [id number] kcals, 95+ grams protein, 11-12 cups fluid INTERVENTION Education: Discussed that he is currently at 12.2% weight loss. Discussed that he is currently not meeting his estimated nutrition needs. Estimate that he is meeting 70% of calorie needs and 85% of protein needs. Reviewed patient's calorie, protein and fluid goals. Recommend that he aim for 6 ensure plus or carnation instant breakfast shakes each day. He will continue to add the muscle milk powder to the carnation shakes and his cappuccino. He is agreeable to this. Patient continues to report that he does not want a feeding tube. He has 3 treatments left after today. We reviewed importance ofmaintaining nutrition currently and after treatment. Patient verbalized understanding of information discussed. MONITORING AND EVALUATION: Nutrition parameter to monitor: Weight Desired Outcome: Maintain weight Patient Goal(s): 1. 6 ensure plus/carnation supplements each day. 2. Aim for 11-12+ cups of fluid per day. 3. Track calorie, protein and fluid intake. 4. Add 1 scoop of muscle milk protein powder to cappuccino and carnation. FOLLOW UP PLAN: Follow up further as needed. RDN's contact information provided and he was encouraged to call with questions. Time spent with patient (minutes): 15 ING METER INSTALLER documented in this encounter Plan of Treatment Scheduled Referrals Name Type Priority Associated Diagnoses Order Schedule Nutrition - Medical nutrition therapy consult (clinic) Outpatient Referral Routine Malignant Neoplasm Of Tonsil (HCC) Once for 1 Occurrences starting 10/11/2022 until 10/11/2022 documented as of this encounter Visit Diagnoses Diagnosis Malignant Neoplasm Of Tonsil (HCC) documented in this encounter
--- OUTSIDE RECORDS SUMMARY | 2023-10-11 12:43 | XMS_ITS | Encounter Summary ---
Author Name Unknown Organization [facility] Address [address] [place] [address] Care Team Providers Care Solar Design Engineer Name Role Phone Unavailable Primary Care Provider Unavailabl e Encounter Details Date Type Department Care Team (Late st Contact Info) Description 10/19/2022 Orders Only Department of Radiation Oncology in [place], [place] [address] [place] [phone] Sapna Mckeon, RYassineNYassine [address] [place] [address] Social History Tobacco Use Types Packs/Day Years [...] any clubs o r organizations such as tenriism groups, unions, fraternal or athletic groups, or [...] Answer Date Recorded PHQ-2 Score 0 09/03/2022 [facility] of Occupat ional Health - Occupational [...] place to sleep or slept in a snf (including now)? No 07/30/2022 Nutrition Answer Date [...] Sex Assigned at Male 07/30/2022 11:39 AM CALL CENTER TRAINER Gender Identity Male 07/30/2022 11:39 AM CALL CENTER TRAINER Sexual Orientation Straight 07/30/2022 11 :39 AM CALL CENTER TRAINER documented as of this encounter Plan of Treatment Not on file documented as of this encounter Visit Diagnoses Not on filedocumented in this encounter
--- OUTSIDE RECORDS SUMMARY | 2023-10-11 12:43 | XMS_ITS | Encounter Summary ---
Author Name Unknown Organization [facility] Address [address] [place] [address] Care Team Providers Care Serging Machine Operator Automatic Name Role Phone Unavailable Primary Care Provider Unavailabl e Reason for Visit * Radiation Therapy (Routine) - Closed Specialty Diagnoses / Procedures Referred By Elizabeth pat Referred To Contact Diagnoses Malignant Neoplasm Of Tonsil (HCC) Procedures Prior Auth Rad Tx SD IMRT COMPLEX Magaly Vallejo M.D. [address] [place] [address] [facility] Referral ID Status Reason Start Date Expiration Date Visits Re quested Visits Authorized [id number] Closed 08/20/2022 08/08/2023 35 35 Encounter Details Date Type Department Care Team (Latest Contact Info) Description 10/10/2022 4:00 PM MATERIAL HANDLING SUPERVISOR - 10/10/2022 11:59 PM MATERIAL HANDLING SUPERVISOR Hospital Encounter Department of Radiation Oncology in [place], [place] [address] [place] [phone] Magaly Vallejo M.D. [address] [place] [phone] Discharge Disposition: Home or Self Care Social [...] often do you attend chur ch or bahai services? More than 4 times per year 07/30/2022 Do you belong to any clubs o r organizations such as confucianist groups, unions, fraternal or athletic groups, or [...] Answer Date Recorded PHQ-2 Score 0 09/03/2022 [facility] of Occupat ional Health - Occupational [...] place to sleep or slept in a long term (including now)? No 07/30/2022 Nutrition Answer Date [...] Sex Assigned at Male 07/30/2022 11:39 AM MATERIAL HANDLING SUPERVISOR Gender Identity Male 07/30/2022 11:39 AM MATERIAL HANDLING SUPERVISOR Sexual Orientation Straight 07/30/2022 11 :39 AM MATERIAL HANDLING SUPERVISOR documented as of this encounter Medications at [...]
--- OUTSIDE RECORDS SUMMARY | 2023-10-11 12:43 | XMS_ITS | Encounter Summary ---
Author Name Unknown Organization [facility] Address [address] [place] [address] Care Team Providers Care Line Installation Supervisor Name Role Phone Unavailable Primary Care Provider Unavailabl e Encounter Details Date Type Department Care Team (Late st Contact Info) Description 10/16/2022 Documentation Department of Radiation Oncology in [place], [place] [address] [place] [phone] Magaly Vallejo M.D. [address] [place] [address] Social History Tobacco Use Types Packs/Day Years [...] often do you attend chur ch or methodist services? More than 4 times per year 07/30/2022 Do you belong to any clubs o r organizations such as mosque groups, unions, fraternal or athletic groups, or [...] Answer Date Recorded PHQ-2 Score 0 09/03/2022 [facility] of Occupat ional Health - [...] place to sleep or slept in a halfway (including now)? No 07/30/2022 Nutrition Answer Date [...] Sex Assigned at Male 07/30/2022 11:39 AM CLINICAL OFFICE TECHNICIAN Gender Identity Male 07/30/2022 11:39 AM CLINICAL OFFICE TECHNICIAN Sexual Orientation Straight 07/30/2022 11 :39 AM CLINICAL OFFICE TECHNICIAN documented as of this encounter Miscellaneous Notes * Radiation Completion Notes - Melinda Dave R.N. - 10/16/2022 11:59 PM CST DIAGNOSIS: 1. Malignant Neoplasm Of Tonsil (HCC) Attending Physician: Magaly Vallejo M.D. Treatment Intent: Curative Concomitant Therapy: Chemotherapy Single Plan Treatment Course: 1xOpx Plan ID Fractions Dose / Fraction (cGy) Dose Treated (cGy) Dose Planned (cGy) First Treatment Last Treatment Elapsed Days F1Opx 35 / 35 200 7000 7000 08/27/2022 10/16/2022 50 Course Summary 08/27/2022 10/16/2022 50 Radiation Modality: Photons CLINICAL SUMMARY Nehemias Pratt completed radiation treatment as planned without interruptions. The course of treatment was tolerated well. The patient experienced toxicities of grade 2 dry mouth, dysgeusia, esophagitis, weight loss, dermatitis, pain, grade 1 nausea, fatigue, dehydration during radiation treatment. TREATMENT RESPONSE: Response to treatment will be determined by post-treatment imaging and/or laboratory work. RECOMMENDED FOLLOW UP: Radiation Oncologist. Dr. Vallejo Signed by: Melinda Dave R.N., 10/18/2022 10:51 AM CLINICAL OFFICE TECHNICIAN [facility] [address] [place] [address] ICAL OFFICE TECHNICIAN documented in this encounter Plan of Treatment Not on file documented as of this encounter Visit Diagnoses Diagnosis Malignant Neoplasm Of Tonsil (HCC)- Primary documented in this encounter
--- OUTSIDE RECORDS SUMMARY | 2023-10-11 12:43 | XMS_ITS | Encounter Summary ---
Author Name Unknown Organization [facility] Address [address] [place] [address] Care Team Providers Care Timing Inspector Name Role Phone Unavailable Primary Care Provider Unavailabl e Reason for Visit * Radiation Therapy (Routine) - Closed Specialty Diagnoses / Procedures Referred By Elizabeth pat Referred To Contact Diagnoses Malignant Neoplasm Of Tonsil (HCC) Procedures Prior Auth Rad Tx [place] IMRT COMPLEX Magaly Vallejo M.D. [address] [place] [address] [facility] Referral ID Status Reason Start Date Expiration Date Visits Re quested Visits Authorized [id number] Closed 08/20/2022 08/08/2023 35 35 Encounter Details Date Type Department Care Team (Latest Contact Info) Description 10/12/2022 2:05 PM RODDING MACHINE TENDER - 10/12/2022 11:59 PM RODDING MACHINE TENDER Hospital Encounter Department of Radiation Oncology in [place], [place] [address] [place] [phone] Magaly Vallejo M.D. [address] [place] [phone] Discharge Disposition: Home or Self Care Social [...] often do you attend chur ch or congregation services? More than 4 times per year 07/30/2022 Do you belong to any clubs o r organizations such as jehovah's witness groups, unions, fraternal or athletic groups, or [...] [facility] of Occupat ional Health - Occupational Stress [...] place to sleep or slept in a nursing home (including now)? No 07/30/2022 Nutrition Answer [...] Sex Assigned at Male 07/30/2022 11:39 AM RODDING MACHINE TENDER Gender Identity Male 07/30/2022 11:39 AM RODDING MACHINE TENDER Sexual Orientation Straight 07/30/2022 11 :39 AM RODDING MACHINE TENDER documented as of this encounter Medications at [...]
--- OUTSIDE RECORDS SUMMARY | 2023-10-11 12:43 | XMS_ITS | Encounter Summary ---
Author Name Unknown Organization [facility] Address [address] [place] [address] Care Team Providers Care Animal Breeder Name Role Phone Unavailable Primary Care Provider Unavailabl e Reason for Visit * Radiation Therapy (Routine) - Closed Specialty Diagnoses / Procedures Referred By Elizabeth pat Referred To Contact Diagnoses Malignant Neoplasm Of Tonsil (HCC) Procedures Prior Auth Rad Tx NV IMRT COMPLEX Magaly Vallejo M.D. [address] [place] [address] [facility] Referral ID Status Reason Start Date Expiration Date Visits Re quested Visits Authorized [id number] Closed 08/20/2022 08/08/2023 35 35 Encounter Details Date Type Department Care Team (Latest Contact Info) Description 10/11/2022 3:50 PM ENVELOPE FOLDER - 10/11/2022 11:59 PM ENVELOPE FOLDER Hospital Encounter Department of Radiation Oncology in [place], [place] [address] [place] [phone] Magaly Vallejo M.D. [address] [place] [phone] Discharge Disposition: Home or Self Care Social [...] often do you attend chur ch or druze services? More than 4 times per year 07/30/2022 Do you belong to any clubs o r organizations such as jewish groups, unions, fraternal or athletic groups, or [...] Date Recorded PHQ-2 Score 0 09/03/2022 [facility] - Occupational [...] Sex Assigned at Male 07/30/2022 11:39 AM ENVELOPE FOLDER Gender Identity Male 07/30/2022 11:39 AM ENVELOPE FOLDER Sexual Orientation Straight 07/30/2022 11 :39 AM ENVELOPE FOLDER documented as of this encounter Medications at [...]
--- OUTSIDE RECORDS SUMMARY | 2023-10-11 12:44 | XMS_ITS | Clinical Summary ---
Author Name Unknown Organization [facility] Address [address] [place] [address] Care Team Providers Care Senior Care Provider Name Role Phone [facility], [facility] Primary Care Provider Allergies No known active allergies Medications Medication Sig Dispensed Refills Start Date End Date Status Levothyroxine Sodium (SYNTHROID PO) 0 Active Atorvastatin Calcium (LIPITOR PO) 0 Active Social History Tobacco Use Types Packs/Day Years Used Date Smoking Tobacco: Never Assessed Adolescent Education Answer Date Record ed Getting School Help Needed Not on file 06/22 Sex and Gender Information Value Date Recorded Sex Assigned at Not on file Gender Identity Not on file Sexual Orientation Not on file Last Filed Vital Signs Vital Sign Reading Time Taken Comments Blood Pressure 136/94 05/13/2019 4:38 AM CDT Pulse 75 05/13/2019 4:38 AM CDT Temperature 36.6 ??C (97.9 ??F) 05/13/2019 4:38 AM CD T Respiratory Rate 18 05/13/2019 4:38 AM CDT Oxygen Saturation 98% 05/13/2019 4:38 AM CDT Inhaled Oxygen Concentration - - Weight - - Height - - Body Mass Index - - Plan of Treatment Health Maintenance Due Date Last Done Comments ADVANCE CARE PLANNING 1960 ANNUAL REVIEW OF HM ORDERS 1960 CT COLONOGRAPHY 1960 FIT 1960 FLEX SIG 1960 TSH W/FREE T4 REFLEX 1960 YEARLY PREVENTIVE VISIT 1960 sDNA (Cologuard) 1960 COVID-19 Vaccine (#1) 1960 COLONOSCOPY 1970 COLORECTAL CANCER SCREENING 1970 HIV SCREENING 1975 HEPATITIS C SCREENING 1978 DTAP/TDAP/TD IMMUNIZATION (1 - Tdap) 1985 LIPID 1995 ZOSTER IMMUNIZATION (1 of 2) 2010 RSV VACCINE ( & 60+ ) (1 - 1-dose 60+ series) 2020 INFLUENZA VACCINE (#1) 2023 PHQ-2 (once per calendar year) 2023 HPV IMMUNIZATION Aged Out No longer e ligible based on patient's age to complete this topic IPV IMMUNIZATION Aged Out No longer e ligible based on patient's age to complete this topic MENINGITIS IMMUNIZATION Aged Out No l onger eligible based on patient's age to complete this topic Pneumococcal Vaccine: Pediat rics (0 to 5 Years) and At-Risk Patients (6 to 64 Years) Aged Out No longer eligi ble based on patient's age to complete this topic RSV MONOCLONAL ANTIBODY Aged Out No l onger eligible based on patient's age to complete this topic Care Teams Senior Care Provider Relationship Specialty Start Date End Date Clinic, [facility] [address] [place] [address] PCP - General 05/13/19
--- OUTSIDE RECORDS SUMMARY | 2023-10-11 12:44 | XMS_ITS | Referral Summary ---
Author Name Unknown Organization [facility] Address [address] [place] [address] Care Team Providers Care Lawn Care Specialist Name Role Phone [facility], [facility] Primary Care Provider Allergies No known active [...] Mass Index - - Plan of Treatment Not on file Care Teams Lawn Care Specialist Relationship Specialty Start Date End Date Clinic, [facility] [address] [place] [address] PCP - General 05/13/19
== END 2023-10-11 12:39 | disposition home or self-care (01) ==
PROVIDERS: PCP Family Medicine; Visit Provider Family Medicine
DX: E06.3 Autoimmune thyroiditis (principal); E78.5 Hyperlipidemia, unspecified; N40.0 Benign prostatic hyperplasia without lower urinary tract symptoms; E46 Unspecified protein-calorie malnutrition
CPT/HCPCS: 80053; 80061; 84443; G0103

== ENCOUNTER 2023-10-25 14:01 | Outpatient (CLI) | payer OTHER, SELFPAY ==
--- NOTE | 2023-10-25 14:00 | CRLHL7_ITS ---
For Patients: As a result of the Century Cures Act, medical imaging exams and procedure reports are released immediately into your electronic medical record. You may view this report before your referring provider. If you have questions, please contact your health care provider. INDICATION: Lung cancer screening. History of smoking. High risk patient with greater than 20 pack-year smoking history. TECHNIQUE: Low-dose lung cancer screening non-contrast CT chest. Dose reduction techniques were used. COMPARISON: None. FINDINGS: NODULES: 2.6 millimeter nodule left lower lobe, . Additional 2 millimeter nodule left upper lobe, . LUNGS AND PLEURA: Paramediastinal reticular thickening noted in both lung apices. Blood is noted within the left lower lobe measuring 2.5 cm. No pleural effusion. Emphysema. MEDIASTINUM: No adenopathy. CORONARY ARTERY CALCIFICATION: None. LIMITED UPPER ABDOMEN: Unremarkable. MUSCULOSKELETAL: No fracture. IMPRESSION: Tiny left-sided pulmonary nodules. LUNG-RADS CATEGORY: 2: Benign. RADIOLOGIST RECOMMENDATION: Continue annual screening with low-dose CT chest in 12 months. Please note that all CT scans at this facility use dose modulation, iterative reconstruction, and/or weight-based dosing when appropriate to reduce radiation dose to as low as reasonably achievable. Dictated by Dante Mendez MD @ 10/25/2023 3:31:42 PM (Electronically Signed)
--- OUTSIDE RECORDS SUMMARY | 2023-10-25 14:04 | XMS_ITS ---
Author Name Unknown Organization [facility] Address [address] [place] [address] Care Team Providers Care Diversified Crops Supervisor Name Role Phone Elsewhere, Pcp Primary Care [...] On Elapsed Days Session Dose Total Dose [id number] 10/16/2022 50 200 cGy 7,000 cGy
--- OUTSIDE RECORDS SUMMARY | 2023-10-25 14:04 | XMS_ITS | Encounter Summary ---
Author Name Unknown Organization [facility] Address [address] [place] [address] Care Team Providers Care Consulting Sales Executive Name Role Phone Elsewhere, Pcp Primary Care Provider Unavailabl e Reason for Referral * Outpatient (Routine) - Authorized Specialty Diagnoses / Procedures Referred By Elizabeth pat Referred To Contact Otorhinolaryngology Kelechi Arteaga M.D. [address] [place] [phone] [facility] Referral ID Status Reason Start Date Expiration Date V isits Requested Visits Authorized [id number] Authorized 01/28/2023 01/27/2026 1 1 Reason for Visit * Outpatient (Routine) - Closed Specialty Diagnoses / Procedures Referred By Elizabeth pat Referred To Contact Otorhinolaryngology Radha Pedroza P.A.-C., M.S. [address] [place] [phone] Kelechi Arteaga M.D. [address] [place] [phone] Referral ID Status Reason Start Date Expiration Date Visits Re quested Visits Authorized [id number] Closed 11/12/2022 11/11/2025 1 1 Encounter Details Date Type Department Care Team (Latest Contact Info) Description 01/28/2023 9:15 AM CDT Office Visit Department of Otorhinolaryngology in [place], [place] [address] [place] [phone] [place] [address] Malignant Neoplasm Of Tonsil (HCC) (Primary Dx) [...] How often do you attend chur or taoism services? More than 4 times per year 07/30/2022 Do you belong to any clubs o r organizations such as islam groups, unions, fraternal or athletic groups, or [...] Answer Date Recorded PHQ-2 Score 0 09/03/2022 [facility] - Occupational Stress Questionnaire Answer Date Recorded [...] place to sleep or slept in a custodial (including now)? No 07/30/2022 Nutrition Answer Date [...] Sex Assigned at Male 07/30/2022 11:39 AM ELECTRICAL ENGINEERING INTERN Gender Identity Male 07/30/2022 11:39 AM ELECTRICAL ENGINEERING INTERN Sexual Orientation Straight 07/30/2022 11 :39 AM ELECTRICAL ENGINEERING INTERN documented as of this encounter Progress Notes [...] Primary documented in this encounter Care Teams Consulting Sales Executive Relationship Specialty Start Date End Date Elsewhere, Pcp PCP - General Internal Medicine 12/26/22 documented as of this encounter
--- OUTSIDE RECORDS SUMMARY | 2023-10-25 14:04 | XMS_ITS | Encounter Summary ---
Author Name Unknown Organization 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 [address] [place] [address] [facility] Referral ID Status Reason Start Date Expiration Date Visits Re quested Visits Authorized [id number] Closed 11/12/2022 11/12/2023 1 1 Encounter Details Date Type Department Care Team (Latest Contact Info) Description 01/22/2023 10:33 AM CDT - 01/22/2023 11:59 PM CDT Hospital Encounter Department of Radiology in [place], [place] [address] [place] [phone] Radha Pedroza P.A.-C., M.S. [address] [place] [address] Malignant Neoplasm Of Tonsil (HCC); Secondary Malignant [...] often do you attend chur ch or jewish services? More than 4 times per year 07/30/2022 Do you belong to any clubs o r organizations such as yazdanism groups, unions, fraternal or athletic groups, or [...] Date Recorded PHQ-2 Score 0 09/03/2022 [facility] of Occupat ional Health - Occupational Stress [...] place to sleep or slept in a longterm (including now)? No 07/30/2022 Nutrition Answer Date [...] Sex Assigned at Male 07/30/2022 11:39 AM SCOOP MACHINE OPERATOR Gender Identity Male 07/30/2022 11:39 AM SCOOP MACHINE OPERATOR Sexual Orientation Straight 07/30/2022 11 :39 AM SCOOP MACHINE OPERATOR documented as of this encounter Medications at [...] RADIOPHARMACEUTICAL/MEDS: Route: intravenous fludeoxyglucose F 18 injection INTERMEDIATE (FDG F-18),13.5 millicurie TECHNIQUE: F-18 FDG PET [...] RADIOPHARMACEUTICAL/MEDS: Route: intravenous fludeoxyglucose F 18 injection INTERMEDIATE (FDG F-18),13.5 millicurie TECHNIQUE: F-18 FDG PET [...] in the neck. Radha Pedro[facility] P.A.-C., 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
--- OUTSIDE RECORDS SUMMARY | 2023-10-25 14:04 | XMS_ITS | Clinical Summary ---
Author Name Unknown Organization [facility] Address [address] [place] [address] Care Team Providers Care Ux Visual Designer Name Role Phone Elsewhere, Pcp Primary Care Provider Unavailabl e Source Comments Patient records contain information from all sites at [facility]. For routine questions regarding patient records, call [phone] during business hours, M-F 8:00 AM - 5:00 PM Central Time. Record requests for emergency care only can be directed to [phone] at any time.[facility] Allergies No known active allergies Medications [...] How often do you attend chur or baptism services? More than 4 times per year 07/30/2022 Do you belong to any clubs o r organizations such as spiritism groups, unions, fraternal or athletic groups, or [...] Date Recorded PHQ-2 Score 0 09/03/2022 [facility] of Occupat ional Health [...] Sex Assigned at Male 07/30/2022 11:39 AM BALING PRESS OPERATOR Gender Identity Male 07/30/2022 11:39 AM BALING PRESS OPERATOR Sexual Orientation Straight 07/30/2022 11 :39 AM BALING PRESS OPERATOR Last Filed Vital Signs Vital Sign [...] age to complete this topic Care Teams Ux Visual Designer Relationship Specialty Start Date End Date Elsewhere, Pcp PCP - General Internal Medicine 12/26/22
--- OUTSIDE RECORDS SUMMARY | 2023-10-25 14:04 | XMS_ITS | Encounter Summary ---
Author Name Unknown Organization [facility] Address [address] [place] [address] Care Team Providers Care Development Technologist Name Role Phone Elsewhere, Pcp Primary Care Provider Unavailabl e Reason for Visit * Reason Onset Date Comments Nicotine Dependence 01/17/2023 Encounter Details Date Type Department Care Team (Latest Contact Info) Description 01/17/2023 Clinical Communication Department of Nicotine Dependence, [facility], in [place], [place] [address] [place] [address] Aditya Miles V., Ed.D. [address] [place] [address] Nicotine Dependence Social History Tobacco Use Types [...] often do you attend chur ch or gnosticist services? More than 4 times per year 07/30/2022 Do you belong to any clubs o r organizations such as adventism groups, unions, fraternal or athletic groups, or [...] Answer Date Recorded PHQ-2 Score 0 09/03/2022 [facility] of Occupat ional Health [...] Sex Assigned at Male 07/30/2022 11:39 AM ROLL EDGE MACHINE OPERATOR Gender Identity Male 07/30/2022 11:39 AM ROLL EDGE MACHINE OPERATOR Sexual Orientation Straight 07/30/2022 11 :39 AM ROLL EDGE MACHINE OPERATOR documented as of this encounter Plan of Treatment Not on file documented as of this encounter Visit Diagnoses Not on filedocumented in this encounter Care Teams Development Technologist Relationship Specialty Start Date End Date Elsewhere, Pcp PCP - General Internal Medicine 12/26/22 documented as of this encounter
--- OUTSIDE RECORDS SUMMARY | 2023-10-25 14:04 | XMS_ITS | Referral Summary ---
Author Name Unknown Organization [facility] Address [address] [place] [address] Care Team Providers Care Fishing Tackle Repairer Name Role Phone Elsewhere, Pcp Primary Care Provider Unavailabl e Source Comments Patient records contain information from all sites at [facility]. For routine questions regarding patient records, call [phone] during business hours, M-F 8:00 AM - 5:00 PM Central Time. Record requests for emergency care only can be directed to [phone] at any time.[facility] Allergies No known active allergies Medications Medication [...] often do you attend chur ch or sabianism services? More than 4 times per year 07/30/2022 Do you belong to any clubs o r organizations such as druze groups, unions, fraternal or athletic groups, or [...] Answer Date Recorded PHQ-2 Score 0 09/03/2022 [facility] of Occupat ional Health - Occupational [...] Sex Assigned at Male 07/30/2022 11:39 AM MANUFACTURING SALES REPRESENTATIVE Gender Identity Male 07/30/2022 11:39 AM MANUFACTURING SALES REPRESENTATIVE Sexual Orientation Straight 07/30/2022 11 :39 AM MANUFACTURING SALES REPRESENTATIVE Last Filed Vital Signs Vital Sign Reading [...] of Treatment Not on file Care Teams Fishing Tackle Repairer Relationship Specialty Start Date End Date Elsewhere, Pcp PCP - General Internal Medicine 12/26/22
--- OUTSIDE RECORDS SUMMARY | 2023-10-25 14:04 | XMS_ITS | Encounter Summary ---
Author Name Unknown Organization [facility] Address [address] [place] [address] Care Team Providers Care Grievance Coordinator Name Role Phone Elsewhere, Pcp Primary Care [...] often do you attend chur ch or taoist services? More than 4 times per year 07/30/2022 Do you belong to any clubs o r organizations such as yazidism groups, unions, fraternal or athletic groups, or [...] Date Recorded PHQ-2 Score 0 09/03/2022 [facility] of Occupat ional Health - Occupational [...] Sex Assigned at Male 07/30/2022 11:39 AM UTILITY DIVISION PROJECT MANAGER Gender Identity Male 07/30/2022 11:39 AM UTILITY DIVISION PROJECT MANAGER Sexual Orientation Straight 07/30/2022 11 :39 AM UTILITY DIVISION PROJECT MANAGER documented as of this encounter Plan [...] on filedocumented in this encounter Care Teams Grievance Coordinator Relationship Specialty Start Date End Date Elsewhere, Pcp PCP - General Internal Medicine 12/26/22 documented as of this encounter
--- OUTSIDE RECORDS SUMMARY | 2023-10-25 14:04 | XMS_ITS ---
Author Name Unknown Organization [facility] Address [address] [place] [address] Care Team Providers Care Television Anchor Name Role Phone Unavailable Unavailable Unavailable Surgery Details Not on file Complications Check Surgery Details section. Procedure Estimated Blood Loss Check Surgery Details section. Procedure Findings Check Surgery Details section. Procedure Specimens Taken Check Surgery Details section.
--- OUTSIDE RECORDS SUMMARY | 2023-10-25 14:05 | XMS_ITS | Clinical Summary ---
Author Name Unknown Organization [facility] Address [address] [place] [address] Care Team Providers Care Transfer Car Operator Drier Name Role Phone [facility], [facility] Primary Care Provider Allergies No known active [...] COLONOGRAPHY 1960 FIT 1960 FLEX SIG 1960 GLUCOSE 1960 TSH W/FREE T4 REFLEX 1960 YEARLY PREVENTIVE VISIT 1960 sDNA (Cologuard) 1960 COVID-19 Vaccine (#1) 1960 COLONOSCOPY 1970 COLORECTAL CANCER SCREENING 1970 HIV SCREENING 1975 HEPATITIS C SCREENING 1978 DTAP/TDAP/TD IMMUNIZATION (1 - Tdap) 1985 LIPID 2000 ZOSTER IMMUNIZATION (1 of 2) 2010 RSV [...] age to complete this topic Care Teams Transfer Car Operator Drier Relationship Specialty Start Date End Date [facility], [facility] [address] [place] [address] PCP - General 05/13/19
--- OUTSIDE RECORDS SUMMARY | 2023-10-25 14:05 | XMS_ITS | Encounter Summary ---
Author Name Unknown Organization [facility] Address [address] [place] [address] Care Team Providers Care Rides Supervisor Name Role Phone Unavailable Primary Care Provider Unavailabl e Encounter Details Date Type Department Care Team (Late st Contact Info) Description 11/02/2022 Orders Only Department of Radiation Oncology in [place], [place] [address] [place] [phone] Sapna Mckeon, RYassineNYassine [address] [place] [address] Social History Tobacco Use Types Packs/Day Years [...] often do you attend chur ch or mormon services? More than 4 times per year [...] Answer Date Recorded PHQ-2 Score 0 09/03/2022 [facility] of Occupat ional [...] place to sleep or slept in a fci (including now)? No 07/30/2022 Nutrition Answer Date [...] Sex Assigned at Male 07/30/2022 11:39 AM LONG TERM CARE PHLEBOTOMIST Gender Identity Male 07/30/2022 11:39 AM LONG TERM CARE PHLEBOTOMIST Sexual Orientation Straight 07/30/2022 11 :39 AM LONG TERM CARE PHLEBOTOMIST documented as of this encounter Plan of Treatment Not on file documented as of this encounter Visit Diagnoses Not on filedocumented in this encounter
--- OUTSIDE RECORDS SUMMARY | 2023-10-25 14:05 | XMS_ITS | Encounter Summary ---
Author Name Unknown Organization [facility] Address [address] [place] [address] Care Team Providers Care Conference Translator Name Role Phone Elsewhere, Pcp Primary Care Provider Unavailabl e Encounter Details Date Type Department Care Team (Late st Contact Info) Description 12/27/2022 Orders Only Division of Endocrinology in [place], [place] [address] [place] [address] Hosea Mosher III, M.D. Social History Tobacco [...] often do you attend chur ch or latter day services? More than 4 times per year [...] Sex Assigned at Male 07/30/2022 11:39 AM PLASTICS TOOLING ENGINEER Gender Identity Male 07/30/2022 11:39 AM PLASTICS TOOLING ENGINEER Sexual Orientation Straight 07/30/2022 11 :39 AM PLASTICS TOOLING ENGINEER documented as of this encounter Plan of Treatment Not on file documented as of this encounter Visit Diagnoses Not on filedocumented in this encounter Care Teams Conference Translator Relationship Specialty Start Date End Date Elsewhere, Pcp PCP - General Internal Medicine 12/26/22 documented as of this encounter
--- OUTSIDE RECORDS SUMMARY | 2023-10-25 14:05 | XMS_ITS | Encounter Summary ---
Author Name Unknown Organization [facility] Address [address] [place] [address] Care Team Providers Care Rn Ortho Name Role Phone Unavailable Primary Care Provider Unavailabl e Reason for Referral * Outpatient (Routine) - Authorized Specialty Diagnoses / Procedures Referred By Contac t Referred To Contact Radiation Oncology Radha Pedroza P.A.-C., M.S. [address] [place] [phone] [facility] Referral ID Status Reason Start Date Expiration Date V isits Requested Visits Authorized [id number] Authorized 11/12/2022 11/11/2025 1 1 Scheduling Instructions PET-CT and visit with Dr. Chandler alford in [place] BED COMPANY DRIVER * Outpatient (Routine) - Closed Specialty Diagnoses / Procedures Referred By Contac t Referred To Contact Otorhinolaryngology Radha Pedroza P.A.-C., M.S. [address] [place] [phone] Kelechi Arteaga M.D. 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 200 [place] [address] [facility] Referral ID Status Reason Start Date Expiration Date Visits Re quested Visits Authorized [id number] Closed 11/12/2022 11/12/2023 1 1 BED COMPANY DRIVER * Outpatient (Routine) - Closed Specialty Diagnoses / Procedures Referred By Contac t Referred To Contact Radiation Oncology Magaly Vallejo M.D. 200 [place] [address] [facility] Referral ID Status Reason Start Date Expiration Date Visits Re quested Visits Authorized [id number] Closed 10/11/2022 10/10/2025 1 1 BED COMPANY DRIVER Reason for Visit * Outpatient (Routine) - Closed Specialty Diagnoses / Procedures Referred By Elizabeth t Referred To Contact Radiation Oncology [place] [address] [facility] Referral ID Status Reason Start Date Expiration Date Visits Re quested Visits Authorized [id number] Closed 10/11/2022 10/10/2025 1 1 Encounter Details Date Type Department Care Team (Latest Contact Info) Description 11/12/2022 2:52 PM FLATB[employer] COMPANY DRIVER - 11/13/2022 5:09 PM FLATBED COMPANY DRIVER Hospital Encounter Department of Radiation Oncology in [address] [phone] Magaly Vallejo M.D. [address] [place] [address] [place] [address] Malignant Neoplasm Of Tonsil (HCC) (Primary Dx); [...] often do you attend chur ch or lutheran services? More than 4 times per year 07/30/2022 Do you belong to any clubs o r organizations such as taoist groups, unions, fraternal or athletic groups, or [...] Answer Date Recorded PHQ-2 Score 0 09/03/2022 [facility] of Occupat ional Health - Occupational [...] place to sleep or slept in a assisted (including now)? No 07/30/2022 Nutrition Answer Date [...] Sex Assigned at Male 07/30/2022 11:39 AM FLATBED COMPANY DRIVER Gender Identity Male 07/30/2022 11:39 AM FLATBED COMPANY DRIVER Sexual Orientation Straight 07/30/2022 11 :39 AM FLATBED COMPANY DRIVER documented as of this encounter Last Filed Vital Signs Vital Sign Reading Time Taken Comments Blood Pressure 114/70 11/12/2022 3:00 PM FLAT[employer]ED COMPANY DRIVER Pulse 77 11/12/2022 3:00 PM FLATBED COMPANY DRIVER Temperature 36.7 ??C (98.1 ??F) 11/12/2022 3:00 PM CS T Respiratory Rate - - Oxygen Saturation - - Inhaled Oxygen Concentration - - Weight 77.4 kg (170 lb 10.2 oz) 11/12/2022 3:00 PM FLATBED COMPANY DRIVER Height - - Body Mass Index 26.72 09/13/2022 4:16 PM FLATBED COMPANY DRIVER documented in this encounter Medications at Time [...] with weekly cisplatin chemotherapy administered at the [facility]. His oncologic history is as [...] of flavor. He reports continuing to have [place] Instant Breakfast as well as two Ensure or Boost per day. He is also taking in soft foods such as oatmeal, potatoes, salad, and ice cream. He was receiving IV fluids at the [facility] through last week, with Saturday [...] a PET-CT scan in 2 months in [place] as well as follow-up with Dr. Arteaga [...] Radha Pedroza P.A.-C., MYassineS. 11/12/2022 4:17 PM FLATBED COMPANY DRIVER [facility] [address] [place] [address] BED COMPANY DRIVER Associated attestation - Magaly Vallejo M.D. - 11/13/2022 5:09 PM FLATBED COMPANY DRIVER I saw and evaluated the patient and [...] Dr. Steven Arteaga and a PET/CT in [place]. He will contact his dentist about dental [...] RADIOPHARMACEUTICAL/MEDS: Route: intravenous fludeoxyglucose F 18 injection FDC (FDG F-18),13.5 millicurie TECHNIQUE: F-18 FDG PET [...] RADIOPHARMACEUTICAL/MEDS: Route: intravenous fludeoxyglucose F 18 injection FDC (FDG F-18),13.5 millicurie TECHNIQUE: F-18 FDG PET [...] disease in the neck. Rosa Ferguson P.A.-C..S. 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
--- OUTSIDE RECORDS SUMMARY | 2023-10-25 14:05 | XMS_ITS | Encounter Summary ---
Author Name Unknown Organization [facility] Address [address] [place] [address] Care Team Providers Care Physician Underwriter Name Role Phone Elsewhere, Pcp Primary Care Provider Unavailabl e Reason for Visit * Reason Comments Establish Care * Appointment Request (Routine) - Closed Specialty Diagnoses / Procedures Referred By Contac t Referred To Contact Endocrinology Diagnoses Dysfunction Thyroid Referral ID Status Reason Start Date Expiration Date Visits Re quested Visits Authorized [id number] Closed 12/14/2022 12/14/2023 1 1 Encounter Details Date Type Department Care Team (Latest Contact Info) Description 12/28/2022 9:00 AM CDT Comprehensive Visit Division of Endocrinology in [place], [place] [address] [place] [address] Hosea Mosher III, M.D. Hypothyroidism On Replacement [...] How often do you attend chur or oriental orthodox services? More than 4 times per year 07/30/2022 Do you belong to any clubs o r organizations such as protestant groups, unions, fraternal or athletic groups, or [...] Answer Date Recorded PHQ-2 Score 0 09/03/2022 [facility] Questionnaire Answer Date [...] place to sleep or slept in a intermediate (including now)? 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 He denies any symptoms of tremor, palpitations, [...] T3 (Triiodothyronine), Total; Future; Expected date: 02/08/2023 Nehemisa Pratt is a 62 y.o. man with [...] and neck supervised by Dr. Vallejo in [place]. He currently is mildly hyperthyroid with a [...] Mosher III, M.D. CT CT Job ID: [id number] documented in this encounter Plan of Treatment Not on file documented as of this encounter Visit Diagnoses Diagnosis Hypothyroidism On Replacement- Primary documented in this encounter Care Teams Physician Underwriter Relationship Specialty Start Date End Date Elsewhere, Pcp PCP - General Internal Medicine 12/26/22 documented as of this encounter
--- OUTSIDE RECORDS SUMMARY | 2023-10-25 14:05 | XMS_ITS | Encounter Summary ---
Author Name Unknown Organization [facility] Address [address] [place] [address] Care Team Providers Care Tube Knitter Name Role Phone Unavailable Primary Care Provider Unavailabl e Encounter Details Date Type Department Care Team (Late st Contact Info) Description 11/16/2022 Orders Only Department of Radiation Oncology in [place], [place] [address] [place] [phone] Magaly Vallejo M.D. [address] [place] [address] Social History Tobacco Use Types Packs/Day Years [...] often do you attend chur ch or episcopalian services? More than 4 times per year 07/30/2022 Do you belong to any clubs o r organizations such as worship groups, unions, fraternal or athletic groups, or [...] Answer Date Recorded PHQ-2 Score 0 09/03/2022 [facility] of Occupat ional Health - Occupational Stress [...] Sex Assigned at Male 07/30/2022 11:39 AM SURGICAL INSTRUMENT MAKER Gender Identity Male 07/30/2022 11:39 AM SURGICAL INSTRUMENT MAKER Sexual Orientation Straight 07/30/2022 11 :39 AM SURGICAL INSTRUMENT MAKER documented as of this encounter Plan of Treatment Not on file documented as of this encounter Visit Diagnoses Not on filedocumented in this encounter
--- OUTSIDE RECORDS SUMMARY | 2023-10-25 14:05 | XMS_ITS | Encounter Summary ---
Author Name Unknown Organization [facility] Address [address] [place] [address] Care Team Providers Care Cv Tech Name Role Phone Unavailable Primary Care Provider Unavailabl e Reason for Visit * Reason Comments Med Refill Encounter Details Date Type Department Care Team (Late st Contact Info) Description 11/20/2022 Refill Department of Radiation Oncology in [place], [place] [address] [place] [phone] Magaly Vallejo M.D. [address] [place] [address] Med Refill Social History Tobacco Use Types [...] often do you attend chur ch or restorationist services? More than 4 times per year [...] Answer Date Recorded PHQ-2 Score 0 09/03/2022 [facility] of Occupat ional Health - Occupational [...] Sex Assigned at Male 07/30/2022 11:39 AM FUEL YARD OPERATOR Gender Identity Male 07/30/2022 11:39 AM FUEL YARD OPERATOR Sexual Orientation Straight 07/30/2022 11 :39 AM FUEL YARD OPERATOR documented as of this encounter Plan of Treatment Not on file documented as of this encounter Visit Diagnoses Not on filedocumented in this encounter
--- OUTSIDE RECORDS SUMMARY | 2023-10-25 14:05 | XMS_ITS | Encounter Summary ---
Author Name Unknown Organization [facility] Address [address] [place] [address] Care Team Providers Care Senior Lead Developer Name Role Phone Unavailable Primary Care Provider Unavailabl e Encounter Details Date Type Department Care Team (Late st Contact Info) Description 11/02/2022 Clinical Communication Department of Radiation Oncology in [place], [place] [address] [place] [phone] Sapna Mckeon, RYassineNYassine [address] [place] [address] Social History Tobacco Use Types Packs/Day Years [...] any clubs o r organizations such as pentecostal groups, unions, fraternal or athletic groups, or [...] Answer Date Recorded PHQ-2 Score 0 09/03/2022 [facility] of Occupat ional Health - [...] Sex Assigned at Male 07/30/2022 11:39 AM BUSINESS DEVELOPMENT ANALYST Gender Identity Male 07/30/2022 11:39 AM BUSINESS DEVELOPMENT ANALYST Sexual Orientation Straight 07/30/2022 11 :39 AM BUSINESS DEVELOPMENT ANALYST documented as of this encounter Miscellaneous Notes * Telephone Encounter - Sapna Mckeon R.N. - 11/02/2022 2:30 PM CST ASSESSMENT Patient calls in to report that he feels he has oral thrush. His daughter is an PRODUCTION BORING MACHINE OPERATOR and notes that she sees thrush appearance [...] need for anti-fungal prescription to [facility] in [place], [place]. Disposition/Recommendation: self-care - appropriate at this time, patient encouraged to call back with questions. Information/Education: patient/caller able to teach back. Caller agreeable to plan of care: yes. The following references were used: nursing clinical judgement. Addendum: Diflucan prescribed as this was previously well tolerated with patient back in Mid September 2022 NESS DEVELOPMENT ANALYST documented in this encounter Plan of Treatment Not on file documented as of this encounter Visit Diagnoses Not on filedocumented in this encounter
--- OUTSIDE RECORDS SUMMARY | 2023-10-25 14:05 | XMS_ITS | Referral Summary ---
Author Name Unknown Organization [facility] Address [address] [place] [address] Care Team Providers Care Coal Shooter Name Role Phone [facility] Primary Care Provider Allergies No known [...] of Treatment Not on file Care Teams Coal Shooter Relationship Specialty Start Date End Date Clinic, [facility] [address] [place] [address] PCP - General 05/13/19
--- OUTSIDE RECORDS SUMMARY | 2023-10-25 14:05 | XMS_ITS | Encounter Summary ---
Author Name Unknown Organization [facility] Address [address] [place] [address] Care Team Providers Care Sole Assessor Name Role Phone Unavailable Primary Care Provider Unavailabl e Encounter Details Date Type Department Care Team (Late st Contact Info) Description 10/19/2022 Orders Only Department of Radiation Oncology in [place], [place] [address] [place] [phone] Sapna Mckeon, RYassineNYassine [address] [place] [address] Social History Tobacco Use Types Packs/Day Years [...] any clubs o r organizations such as sabianism groups, unions, fraternal or athletic groups, or [...] Answer Date Recorded PHQ-2 Score 0 09/03/2022 [facility] of Occupat ional Health - [...] Sex Assigned at Male 07/30/2022 11:39 AM WOOD FLOUR MILLER Gender Identity Male 07/30/2022 11:39 AM WOOD FLOUR MILLER Sexual Orientation Straight 07/30/2022 11 :39 AM WOOD FLOUR MILLER documented as of this encounter Plan of Treatment Not on file documented as of this encounter Visit Diagnoses Not on filedocumented in this encounter
--- OUTSIDE RECORDS SUMMARY | 2023-10-25 14:05 | XMS_ITS | Encounter Summary ---
Author Name Unknown Organization [facility] Address [address] [place] [address] Care Team Providers Care Wheelabrator Operator Name Role Phone Unavailable Primary Care Provider Unavailabl e Encounter Details Date Type Department Care Team (Late st Contact Info) Description 11/21/2022 Clinical Communication Department of Radiation Oncology in [place], [place] [address] [place] [address] Magaly Vallejo M.D. [address] [place] [address] Social History Tobacco Use Types Packs/Day Years [...] often do you attend chur ch or mosque services? More than 4 times per year 07/30/2022 Do you belong to any clubs o r organizations such as mu-ism groups, unions, fraternal or athletic groups, or [...] Answer Date Recorded PHQ-2 Score 0 09/03/2022 [facility] of Occupat ional [facility] - Occupational Stress Questionnaire Answer Date [...] Sex Assigned at Male 07/30/2022 11:39 AM PRESSURE TESTER OPERATOR Gender Identity Male 07/30/2022 11:39 AM PRESSURE TESTER OPERATOR Sexual Orientation Straight 07/30/2022 11 :39 AM PRESSURE TESTER OPERATOR documented as of this encounter Plan of Treatment Not on file documented as of this encounter Visit Diagnoses Not on filedocumented in this encounter
--- OUTSIDE RECORDS SUMMARY | 2023-10-25 14:05 | XMS_ITS | Encounter Summary ---
Author Name Unknown Organization [facility] Address [address] [place] [address] Care Team Providers Care Rn Interventional Name Role Phone Elsewhere, Pcp Primary Care Provider Unavailabl e Reason for Visit * Reason Onset Date Comments Pre-visit Intake 12/26/2022 Encounter Details Date Type Department Care Team (Latest Contact Info) Description 12/26/2022 1:45 PM CDT Clinical Communication Virtual Review in [place], [place] [address] [place], [place] [address] Pre-visit Intake Social History Tobacco Use Types [...] often do you attend chur ch or islam services? More than 4 times per year [...] Answer Date Recorded PHQ-2 Score 0 09/03/2022 [facility] - Occupational Stress Questionnaire Answer Date [...] Sex Assigned at Male 07/30/2022 11:39 AM LEAD PRINTER Gender Identity Male 07/30/2022 11:39 AM LEAD PRINTER Sexual Orientation Straight 07/30/2022 11 :39 AM LEAD PRINTER documented as of this encounter Plan of Treatment Not on file documented as of this encounter Visit Diagnoses Not on filedocumented in this encounter Care Teams Rn Interventional Relationship Specialty Start Date End Date Elsewhere, Pcp PCP - General Internal Medicine 12/26/22 documented as of this encounter
--- OUTSIDE RECORDS SUMMARY | 2023-10-25 14:05 | XMS_ITS | Encounter Summary ---
Author Name Unknown Organization [facility] Address [address] [place] [address] Care Team Providers Care Repair Service Dispatcher Name Role Phone Elsewhere, Pcp Primary Care Provider Unavailabl e Encounter Details Date Type Department Care Team (Late st Contact Info) Description 12/05/2022 Clinical Communication Department of Radiation Oncology in [place], [place] [address] [place] [phone] Magaly Vallejo M.D. [address] [place] [address] Social History Tobacco Use Types Packs/Day Years [...] often do you attend chur ch or amish services? More than 4 times per year [...] Answer Date Recorded PHQ-2 Score 0 09/03/2022 [facility] of Occupat ional Health - Occupational Stress [...] Assigned at Male 07/30/2022 11:39 AM MANAGER TRANSPORTATION Gender Identity Male 07/30/2022 11:39 AM MANAGER TRANSPORTATION Sexual Orientation Straight 07/30/2022 11 :39 AM MANAGER TRANSPORTATION documented as of this encounter Miscellaneous Notes [...] to do regarding his symptoms. Phone number: [phone] Is it okay to leave a voicemail on answering machine with test results? Yes Pharmacy (if medication related): N/A Anisha Perez documented in this encounter Plan of Treatment Not on file documented as of this encounter Visit Diagnoses Not on filedocumented in this encounter Care Teams Repair Service Dispatcher Relationship Specialty Start Date End Date Elsewhere, Pcp PCP - General Internal Medicine 12/26/22 documented as of this encounter
--- OUTSIDE RECORDS SUMMARY | 2023-10-25 14:05 | XMS_ITS | Encounter Summary ---
Author Name Unknown Organization [facility] Address [address] [place] [address] Care Team Providers Care Glue Drier Operator Name Role Phone Unavailable Primary Care Provider Unavailabl e Encounter Details Date Type Department Care Team (Late st Contact Info) Description 11/16/2022 Clinical Communication Department of Radiation Oncology in [place], [place] [address] [place] [address] Magaly Vallejo M.D. [address] [place] [address] Social History Tobacco Use Types Packs/Day Years [...] often do you attend chur ch or sikh services? More than 4 times per year [...] 0 09/03/2022 [facility] of Occupat ional [facility] - Occupational Stress Questionnaire Answer [...] Sex Assigned at Male 07/30/2022 11:39 AM DESIGN STUDIO CONSULTANT Gender Identity Male 07/30/2022 11:39 AM DESIGN STUDIO CONSULTANT Sexual Orientation Straight 07/30/2022 11 :39 AM DESIGN STUDIO CONSULTANT documented as of this encounter Miscellaneous Notes [...] working on increasing daily caloric intake. Patientdeclined Import/Export Analyst visit. He is flying to [place] tomorrow. Dr. Vallejo refilled Compazine prescription in case nausea develops. Radiation Oncology [place] can be contacted at anytime for any questions or concerns. Disposition/Recommendation: self-care - appropriate at this time, patient encouraged to call back with questions Information/Education: patient/caller able to teach back Caller agreeable to plan of care: yes The following references were used: provider Dr. Vallejo GN STUDIO CONSULTANT * Telephone Encounter - Benito Perez - 11/16/2022 12:38 PM CST Caller: Nehemias Pratt Is there a valid authorization to speak with caller? Yes Primary Radiation Oncologist: Dr. Vallejo Reason for call: Deepti was calling in regards to a prescription refill. Nehemias is out of his nausea medication and had went to his chemo doctor at [facility] to get a refill. They told him that since he is no longer getting chemo that he must come to us since we are still giving care. They are also leavingon vacation tomorrow so it is an urgent need. She specified that it was the long medication that sta rted with P, so I presume it's the prochlorperazine. Phone number: [phone] Is it okay to leave a voicemail on answering machine with test results? Yes Pharmacy (if medication related): [id number] [id number] [facility] [address] [address] [facility] [id number] [place] [phone] [facility] #[id number] - [facility] [id number] [facility] [address] [id number] [facility] [phone] GN STUDIO CONSULTANT documented in this encounter Plan of Treatment Not on file documented as of this encounter Visit Diagnoses Not on filedocumented in this encounter
--- OUTSIDE RECORDS SUMMARY | 2023-10-25 14:05 | XMS_ITS | Encounter Summary ---
Author Name Unknown Organization [facility] Address [address] [place] [address] Care Team Providers Care Economic Analyst Name Role Phone Unavailable Primary Care Provider Unavailabl e Reason for Visit * Reason Onset Date Comments Follow-up 10/26/2022 Encounter Details Date Type Department Care Team ([facility] st Contact Info) Description 10/26/2022 Clinical Communication Department of Radiation Oncology in [place], [place] [address] [place] [id number] Magaly Vallejo M.D. [address] [place] [address] Follow-up Social History Tobacco Use Types Packs/Day [...] often do you attend chur ch or protestant services? More than 4 times per year 07/30/2022 Do you belong to any clubs o r organizations such as anabaptism groups, unions, fraternal or athletic groups, or [...] Score 0 09/03/2022 [facility] - Occupational Stress Questionnaire Answer [...] Sex Assigned at Male 07/30/2022 11:39 AM BUILDING ENERGY CONSULTANT Gender Identity Male 07/30/2022 11:39 AM BUILDING ENERGY CONSULTANT Sexual Orientation Straight 07/30/2022 11 :39 AM BUILDING ENERGY CONSULTANT documented as of this encounter Miscellaneous [...] IV fluid Mondays, Wednesdays and Fridays at [facility]. His labs will be checked again this coming Saturday. PLAN Dr. Vallejo will send in Oxycodone prescription refill to [facility] in [place] today. I discussed with Deepti and patient [...] discussed homemade ice cream shakes in a blender conveyor operator mixed with milk, fruit and honey to help increase daily caloric intake. We also discussed trialing creamed soups. Jello is to be mixed with pureed fruit to again increase caloric intake. He is to increase daily intake of Ensure Clears. We discussed that increased protein and caloric intake will help with the healing processs post treatment. Patient declined Machine Setter And Repairer visit this coming . I have reviewed plan of care with Dr. Vallejo today. Disposition/Recommendation: self-care - appropriate at this time, patient encouraged to call back with questions Information/Education: patient/caller able to teach back Caller agreeable to plan of care: yes The following references were used: provider Dr. Vallejo DING ENERGY CONSULTANT * Telephone Encounter - Anisha Perez - 10/26/2022 11:49 AM CST Caller: Patient Is there a valid authorization to speak with caller? Yes Primary Radiation Oncologist: Dr. Vallejo Reason for call: Patient and his called regarding a refill of his pain medication. He is currently getting fluids at [facility] but only has 5 pills remaining and does not think that will last through the weekend. Phone number: [phone] Is it okay to leave a voicemail on answering machine with test results? Yes [facility] (if medication related[id number] [place] - [address] [address] [facility] [address] [facility] [address] [address] [facility] [id number] [id number] - [place] - [address] [facility] [phone] [facility] [id number] Anisha Perez, DING ENERGY CONSULTANT documented in this encounter Plan of Treatment Not on file documented as of this encounter Visit Diagnoses Not on filedocumented in this encounter
== END 2023-10-25 14:02 | disposition home or self-care (01) ==
LOC: CT 14:01
PROVIDERS: PCP Family Medicine; Visit Provider Family Medicine
DX: F17.200 Nicotine dependence, unspecified, uncomplicated (principal); Z12.2 Encounter for screening for malignant neoplasm of respiratory organs
CPT/HCPCS: 71271

== ENCOUNTER 2024-11-06 13:34 | Outpatient (CLI) | payer OTHER, SELFPAY ==
--- NOTE | 2024-11-06 13:45 | CRLHL7_ITS ---
For Patients: As a result of the Century Cures Act, medical imaging exams and procedure reports are released immediately into your electronic medical record. You may view this report before your referring provider. If you have questions, please contact your health care provider. Indication: Tonsillar cancer, history of adenopathy Technique: Grayscale and color Doppler ultrasound of the left neck soft tissues performed. Comparison: CT 06/29/2022, ultrasound 06/15/2022 Findings: Left cervical lymph nodes are present measuring 10 x 8 x 9 millimeters, 9 x 6 x 8 millimeters and 10 x 6 x 9 millimeters. Little internal vascularity noted. No shadowing lesion. No fluid collection or abscess. Normal fatty gerardo not appreciated. Impression: Nonenlarged left cervical lymph nodes are present status post chemoradiation. Dictated by Dante Mendez MD @ 11/08/2024 6:51:18 AM (Electronically Signed)
== END 2024-11-06 13:35 | disposition home or self-care (01) ==
LOC: US 13:35
PROVIDERS: PCP Family Medicine; Visit Provider Nurse Practitioner Family
DX: R59.0 Localized enlarged lymph nodes (principal)
CPT/HCPCS: 76536

== ENCOUNTER 2025-02-05 13:21 | Outpatient (CLI) | payer OTHER, SELFPAY | END 2025-02-05 13:22 | disposition home or self-care (01) | PROVIDERS: PCP Family Medicine; Visit Provider Family Medicine | DX: Z00.01 Encounter for general adult medical examination with abnormal findings (principal); D69.3 Immune thrombocytopenic purpura; D72.828 Other elevated white blood cell count; E03.8 Other specified hypothyroidism; E06.3 Autoimmune thyroiditis; N40.0 Benign prostatic hyperplasia without lower urinary tract symptoms; Z12.5 Encounter for screening for malignant neoplasm of prostate | CPT/HCPCS: 80053; 80061; 84439; 84443; G0103 ==

== ENCOUNTER 2025-08-31 13:26 | Outpatient (CLI) | payer OTHER, SELFPAY | END 2025-08-31 13:27 | disposition home or self-care (01) | LOC: FRMREF 13:26 | PROVIDERS: PCP Family Medicine; Visit Provider Family Medicine | DX: Z00.00 Encounter for general adult medical examination without abnormal findings (principal); D49.0 Neoplasm of unspecified behavior of digestive system; C09.9 Malignant neoplasm of tonsil, unspecified | CPT/HCPCS: 80048 ==

== ENCOUNTER 2025-09-10 12:54 | Outpatient (CLI) | payer OTHER, SELFPAY ==
--- NOTE | 2025-09-10 13:00 | CRLHL7_ITS ---
For Patients: As a result of the Century Cures Act, medical imaging exams and procedure reports are released immediately into your electronic medical record. You may view this report before your referring provider. If you have questions, please contact your health care provider. Indication: Throat pain, primary tonsillar squamous cell carcinoma. Technique: Contrast-enhanced CT of the neck with multiplanar reconstruction. 76 cc Isovue 370 iodinated intravenous contrast was utilized. Comparison: CT soft tissue neck dated 06/29/2022. Findings: Decreased conspicuity of the masslike enlargement and enhancement of the left palatine tonsil on prior exam. No focus of new suspicious nodular mucosal based enhancement. Diffuse infiltration of the soft tissue planes in the left upper neck consistent with posttreatment changes. No new pathologically enlarged cervical lymph nodes. Two treated calcified subcentimeter level IIa lymph nodes. Additional extensive soft tissue density about previously reference necrotic left level IIb and III lymph nodes. Clear lung apices. No aggressive osseous lesion. The imaged orbits and intracranial structures appear within normal limits. Impression: 1. No focus of new suspicious mucosal based enhancement. 2. No new pathologically enlarged cervical lymph nodes. 3. Infiltration of the soft tissue planes within the left upper neck about the previously referenced left tonsillar lesion and necrotic lymph nodes, consistent with posttreatment changes. Please note that all CT scans at this facility use dose modulation, iterative reconstruction, and/or weight-based dosing when appropriate to reduce radiation dose to as low as reasonably achievable. Dictated by Grabiel Swift MD @ 09/10/2025 2:05:26 PM (Electronically Signed)
== END 2025-09-10 12:55 | disposition home or self-care (01) ==
LOC: CT 12:55
PROVIDERS: PCP Family Medicine; Visit Provider Family Medicine
DX: R22.1 Localized swelling, mass and lump, neck (principal); D49.0 Neoplasm of unspecified behavior of digestive system
CPT/HCPCS: 70491; Q9967

== ENCOUNTER 2025-09-15 11:36 | Outpatient (CLI) | payer OTHER, SELFPAY | END 2025-09-15 11:37 | disposition home or self-care (01) | LOC: NFLDREF 09-21 15:42 | PROVIDERS: PCP Family Medicine; Referring Provider Family Medicine; Visit Provider Family Medicine | DX: E03.8 Other specified hypothyroidism (principal); E06.3 Autoimmune thyroiditis | CPT/HCPCS: 84439; 84443 ==